=== PATIENT | female | born 1950 | race Hispanic/Latino ===

== ENCOUNTER 2018-04-02 09:21 | Day surgery (SDC) | payer OTHER ==
[2018-04-02] MEDS ORDERED: EPINEPHRINE/PF 1 MG/ML AMP ONE (10:12)
[2018-04-02] MEDS ORDERED: BALANCED SALT IRRIG PLAIN 500 ML BTL IRR ONE (10:12)
[2018-04-02] MEDS ORDERED: NS 0.9% VIAL 10 ML ONE (10:12)
[2018-04-02] MEDS ORDERED: DUOVISC 1 KIT OPTH ONE (10:12)
[2018-04-02] MEDS ORDERED: MOXIFLOXACIN HCL 10 DROPS/ML **OR USE OPTH ONE (10:13)
[2018-04-02] MEDS ORDERED: BUPIVACAINE 0.25% PF 10 ML VIAL ONE (10:41)
[2018-04-02] MEDS ORDERED: CYCLOPENTOLATE 1% OPTH 2 ML ONE (10:41)
[2018-04-02] MEDS ORDERED: LIDOCAINE 2% MPF 5 ML VIAL ONE ×2 (10:41→11:35)
[2018-04-02] MEDS ORDERED: NA CHLORIDE 0.9% 500 ML ONE (10:41)
[2018-04-02] MEDS ORDERED: PHENYLEPHRINE 10% OPTH 5ML ONE (10:41)
[2018-04-02] MEDS ORDERED: TETRACAINE HCL 0.5% 2ML OPTH ONE (10:41)
[2018-04-02] MEDS ORDERED: PHENYLEPHRINE 10% OPTH 5ML OPTH ONE ×2 (10:50→10:55)
[2018-04-02] MEDS ORDERED: CYCLOPENTOLATE 1% OPTH 2 ML OPTH ONE ×2 (10:50→10:55)
[2018-04-02] MEDS ORDERED: PROPOFOL 200 MG/20 ML VIAL IV ONE (11:35)
--- NOTE | 2018-04-02 12:38 | P.BOP ---
Preoperative diagnosis: Nuclear sclerotic and cortical cataract OD Postoperative diagnosis: Same Primary procedure: Phacoemulsification with IOL OD Estimated blood loss: None Anesthesia: Local (Subtenon's infusion with anesthesia for cataract surgery) Complications: None Implants: ZCB00 +14.5 Transferred to: Other (Day surgery) Condition: Good
--- NOTE | 2018-04-02 14:31 | OP ---
Date of Procedure: 04/02/2018 Surgeon: Alicia Newsome MD Anesthesiologist: Gail Rivera CRNA, and Edenilson Aleman M.D. Preoperative Diagnosis: Nuclear sclerotic cataract and cortical cataract, OD (right eye). Operation Performed: Phacoemulsification with intraocular lens implant, OD (right eye). Anesthesia: Per cataract surgery. Complications: Description Of Procedure: In day surgery, the patient was prepped with Betadine and draped. A conju nctival incision was made in the inferior nasal quadrant with Iraida scissors. A sub-Tenon block c onsisting of a 1:1 mixture of 2% Xylocaine and 0.25% bupivacaine was placed through the conjunctival incision with a blunt cannula. A Honan balloon was placed over the eye and the patient was transferr ed to the operating room. In the operating room the patient was prepped and draped in the usual sterile fashion for ophthalmic surgery. A lid speculum was placed in the right eye. Two paracentesis sites were made superiorly an d inferiorly in the limbal cornea. Viscoat was placed in the anterior chamber and a crescent blade w as used to make a corneal groove and tunnel, and a keratome was used to enter the anterior chamber. Provisc was placed in the anterior chamber and a 360 degree capsulotomy was performed with a cystitom e. The lens was hydrodissected with BSS and rotated freely. The lens was removed with a stop and ch op technique. A 5.75 phaco CDE was used to remove the lens. Residual cortex was removed with the ir rigation and aspiration. Provisc was placed in the capsular bag. A ZCB00 +14.5 diopter lens was lisa frank in the capsular bag without complications. Irrigation and aspiration were used to remove residua l viscoelastic. The paracentesis sites were hydrated with BSS. The wound and paracentesis sites wer e inspected and found to be watertight. Vigamox 0.07 cc was placed intracamerally at the end of the procedure. The eye was irrigated with balanced salt solution. The eye was patched with a soft kandis n patch and Bae metal shield. The patient was returned to day surgery in good condition. Comments: A 1:5000 epinephrine was placed in the anterior chamber prior to Viscoat. Discharge Instructions: Ms. Lancaster is discharged to home in good condition and is to follow up with Dr. Newsome in the morning. ZENA/KEYSHAWN Voice ID: [id number] Report ID: [id number]
== END 2018-04-02 13:00 | disposition home or self-care (01) ==
LOC: OR 09:21
PROVIDERS: ATTEND Ophthalmology Retina Specialist
PROC: 08RJ3JZ Replacement of Right Lens with Synthetic Substitute, Percutaneous Approach (ICD-10-PCS; principal; 2018-04-02 10:45)
DX: H25.11 Age-related nuclear cataract, right eye (principal); H25.011 Cortical age-related cataract, right eye; H35.30 Unspecified macular degeneration
CPT/HCPCS: 66984; J0171

== ENCOUNTER 2018-07-16 06:45 | Day surgery (SDC) | payer OTHER ==
[2018-07-16] MEDS ORDERED: LIDOCAINE 2% MPF 5 ML VIAL ONE ×2 (07:00→08:20)
[2018-07-16] MEDS ORDERED: TETRACAINE HCL 0.5% 2ML OPTH ONE (07:00)
[2018-07-16] MEDS ORDERED: BUPIVACAINE 0.25% PF 10 ML VIAL ONE (07:00)
[2018-07-16] MEDS ORDERED: NA CHLORIDE 0.9% 500 ML ONE (07:00)
[2018-07-16] MEDS: CYCLOPENTOLATE 1% OPTH 2 ML ONE ×3 (07:10→07:20)
[2018-07-16] MEDS: PHENYLEPHRINE 10% OPTH 5ML ONE ×3 (07:10→07:20)
[2018-07-16] MEDS ORDERED: EPINEPHRINE/PF 1 MG/ML AMP ONE (08:02)
[2018-07-16] MEDS ORDERED: NS 0.9% VIAL 10 ML ONE (08:02)
[2018-07-16] MEDS ORDERED: BALANCED SALT IRRIG PLAIN 500 ML BTL IRR ONE (08:03)
[2018-07-16] MEDS ORDERED: DUOVISC 1 KIT OPTH ONE (08:04)
[2018-07-16] MEDS ORDERED: PROPOFOL 200 MG/20 ML VIAL IV ONE (08:20)
[2018-07-16] MEDS ORDERED: MOXIFLOXACIN HCL 10 DROPS/ML **OR USE OPTH ONE (08:41)
--- NOTE | 2018-07-16 08:53 | P.BOP ---
Preoperative diagnosis: Nuclear sclerotic and cortical cataract OS Postoperative diagnosis: Same Primary procedure: Phacoemulsification with IOL OS Estimated blood loss: None Anesthesia: Local (Subtenon's infusion with anesthesia for cataract surgery) Complications: None Implants: ZCB00 +12.5 Transferred to: Other (Day surgery) Condition: Good
--- NOTE | 2018-07-16 19:37 | OP ---
Surgeon: Alicia Newsome MD Anesthesiologist: Gail Carmen CRNA. Preoperative Diagnosis: Nuclear sclerotic and cortical cataract, left eye Operation Performed: Phacoemulsification with intraocular lens implant, left eye. Anesthesia: Per cataract surgery Complications: None. Description Of Procedure: In day surgery, the patient was prepped with Betadine and draped. A conju nctival incision was made in the inferior nasal quadrant with Iraida scissors. A sub-Tenon block c onsisting of a 1:1 mixture of 2% Xylocaine and 0.25% bupivacaine was placed through the conjunctival incision with a blunt cannula. A Honan balloon was placed over the eye and the patient was transferr ed to the operating room. In the operating room the patient was prepped and draped in the usual sterile fashion for ophthalmic surgery. A lid speculum was placed in the left eye. Two paracentesis sites were made superiorly and inferiorly in the limbal cornea. Viscoat was placed in the anterior chamber and a crescent blade wa s used to make a corneal groove and tunnel, and a keratome was used to enter the anterior chamber. P rovisc was placed in the anterior chamber and a 360 degree capsulotomy was performed with a cystitome . The lens was hydrodissected with BSS and rotated freely. The lens was removed with a stop and cho p technique. 5.59 Phaco CDE was used to remove the lens. Residual cortex was removed with the irrig ation and aspiration. Provisc was placed in the capsular bag. A ZCB00 +12.5 lens was placed in the capsular bag without complications. Irrigation and aspiration was used to remove residual viscoelast ic. The paracentesis sites were hydrated with BSS. The wound and paracentesis sites were inspected and found to be watertight. Vigamox 0.07 cc was placed intracamerally at the end of the procedure. The eye was irrigated with balanced salt solution. The eye was patched with a soft cotton patch and Bae metal shield. The patient was returned to day surgery in good condition. Comments: 1:5000 epinephrine was placed in the anterior chamber prior to Viscoat. Discharge Instructions: Ms. Lancaster was discharged to home in good condition and is to follow up laquita Newsome in the morning. ZENA/KEYSHAWN Voice ID: [id number] Report ID: [id number]
== END 2018-07-16 09:16 | disposition home or self-care (01) ==
LOC: OR 06:45
PROVIDERS: ATTEND Ophthalmology Retina Specialist
PROC: 08RK3JZ Replacement of Left Lens with Synthetic Substitute, Percutaneous Approach (ICD-10-PCS; principal; 2018-07-16 08:30)
DX: H25.12 Age-related nuclear cataract, left eye (principal); H25.012 Cortical age-related cataract, left eye; H35.30 Unspecified macular degeneration
CPT/HCPCS: 66984; J0171

== ENCOUNTER 2019-02-12 06:05 | Emergency (ER) | payer OTHER ==
[2019-02-12] MEDS ORDERED: LIDOCAINE VISCOUS 2% SOLN 15 ML UDC ONE (06:35)
[2019-02-12] MEDS ORDERED: ONDANSETRON 4 MG (ODT) TAB ONE (07:20)
[2019-02-12] MEDS ORDERED: MEPERIDINE HCL 25 MG/0.5 ML ONE (07:20)
--- NOTE | 2019-02-12 08:20 | EDPHYS ---
Physician Documentation [facility] Name: Manju Lancaster Age: 69 yrs Sex: Female : 1950 Arrival Date: 02/12/2019 Time: 06:17 Bed 19 Private MD: Isaac Fisher E ED Physician Solomon Amin HPI: 02/12 07:18 This 69 yrs old Female presents to ER via Ambulatory with complaints of jr8 Foreign Body In Ear. 07:18 The patient presents with a foreign body sensation, presumably from an insect. The jr8 complaints affect the right ear. Onset: The symptoms/episode began/occurred acutely, last night. Modifying factors: The symptoms are alleviated by nothing, the symptoms are aggravated by touching. Associated signs and symptoms: The patient has no apparent associated signs or symptoms. Severity of symptoms: At their worst the symptoms were mild in the emergency department the symptoms are unchanged. The patient has not experienced similar symptoms in the past. The patient has not recently seen a physician. Historical: - Allergies: 06:26 NKA; fc - Home Meds: 06:26 None [Active]; fc - PMHx: 06:26 GERD; Vertigo; fc - PSHx: 06:26 Hysterectomy; fc - Immunization history:: Last tetanus immunization: unknown, Flu vaccine is not up to date. - Social history:: Smoking status: Patient/guardian denies using tobacco, Patient uses alcohol, occasionally. - Ebola Screening: : Patient negative for fever greater than or equal to 101.5 degrees Fahrenheit, and additional compatible Ebola Virus Disease symptoms Patient denies exposure to infectious person Patient denies travel to an Ebola-affected area in the 21 days before illness onset. ROS: 07:18 Eyes: Negative for injury, pain, redness, and discharge, Neck: Negative for injury, jr8 pain, and swelling, Cardiovascular: Negative for chest pain, palpitations, and edema, Respiratory: Negative for shortness of breath, cough, wheezing, and pleuritic chest pain, Abdomen/GI: Negative for abdominal pain, nausea, vomiting, diarrhea, and constipation, Back: Negative for injury and pain, MS/Extremity: Negative for injury and deformity, Skin: Negative for injury, rash, and discoloration, Neuro: Negative for headache, weakness, numbness, tingling, and seizure. 07:18 ENT: Positive for ear pain, foreign body sensation. Exam: 07:18 Eyes: Pupils equal round and reactive to light, extra-ocular motions intact. Lids and jr8 lashes normal. Conjunctiva and sclera are non-icteric and not injected. Cornea within normal limits. Periorbital areas with no swelling, redness, or edema. Neck: Trachea midline, no thyromegaly or masses palpated, and no cervical lymphadenopathy. Supple, full range of motion without nuchal rigidity, or vertebral point tenderness. No Meningismus. Cardiovascular: Regular rate and rhythm with a normal S1 and S2. No gallops, murmurs, or rubs. Normal PMI, no JVD. No pulse deficits. Respiratory: Lungs have equal breath sounds bilaterally, clear to auscultation and percussion. No rales, rhonchi or wheezes noted. No increased work of breathing, no retractions or nasal flaring. Abdomen/GI: Soft, non-tender, with normal bowel sounds. No distension or tympany. No guarding or rebound. No evidence of tenderness throughout. Back: No spinal tenderness. No costovertebral tenderness. Full range of motion. Skin: Warm, dry with normal turgor. Normal color with no rashes, no lesions, and no evidence of cellulitis. MS/ Extremity: Pulses equal, no cyanosis. Neurovascular intact. Full, normal range of motion. Neuro: Awake and alert, GCS 15, oriented to person, place, time, and situation. Cranial nerves II-XII grossly intact. Motor strength 5/5 in all extremities. Sensory grossly intact. Cerebellar exam normal. Normal gait. 07:18 ENT: External ear(s): are unremarkable, Ear canal(s): foreign body, an insect, in the right external ear canal, Examination of the other ear shows no obvious abnormality, Nose: is normal, Mouth: Lips: moist, Oral mucosa: pink and intact, moist, Gums: pink, Tongue: is moist, Posterior pharynx: Airway: patent, Tonsils: are normal in appearance, Uvula: midline, non-edematous, no erythema, swelling, is not appreciated, erythema, is not appreciated. Vital Signs: 06:20 BP 173 / 84; Pulse 69; Resp 18; Temp 98.2(O); Pulse Ox 98% on R/A; Weight 81.65 kg (R); fc Height 5 ft. 2 in. (157.48 cm) (R); Pain 0/10; 07:15 BP 167 / 89; Pulse 62; Resp 16 S; Pulse Ox 97% on R/A; Pain 7/10; jl7 08:26 BP 141 / 71; Pulse 59; Resp 16 S; Pulse Ox 100% on R/A; Pain 5/10; jl7 06:20 Body Mass Index 32.92 (81.65 kg, 157.48 cm) MDM: 06:20 Patient medically screened. jr8 08:18 Data reviewed: vital signs, nurses notes, and as a result, I will discharge patient. jr8 Data interpreted: Pulse oximetry: on room air is 97 %. Interpretation: normal. Counseling: I had a detailed discussion with the patient and/or guardian regarding: the historical points, exam findings, and any diagnostic results supporting the discharge/admit diagnosis, the need for outpatient follow up, an ENT specialist, to return to the emergency department if symptoms worsen or persist or if there are any questions or concerns that arise at home. ED course: We were only able to partially remove bug from ear. Other portion is stuck on to TM. Will send to ENT for further evaluation. Dr. Simons accepted to see her at her office now. Administered Medications: 07:10 Drug: Zofran 4 mg Route: PO; jl7 07:11 Drug: Demerol 25 mg Route: IM; Site: right deltoid; jl7 Disposition: 02/12/19 08:19 Discharged to Home. Impression: Foreign body in ear. - Condition is Stable. - Discharge Instructions: Ear Foreign Body. - Medication Reconciliation Form, Thank You Letter, Antibiotic Education, Prescription Opioid Use form. - Follow up: Nisa Simons MD; When: Upon discharge from the Emergency Department; Reason: Recheck today's complaints, Continuance of care, Re-evaluation by your physician. - Problem is new. - Symptoms have improved. Signatures: Dary Flores, RN RN Galo Dasilva PA PA jr8 Iliana Felix RN RN jl7 Corrections: (The following items were deleted from the chart) 08:26 08:19 02/12/2019 08:19 Discharged to Home. Impression: Foreign body in ear. Condition jl7 is Stable. Forms are Medication Reconciliation Form, Thank You Letter, Antibiotic Education, Prescription Opioid Use. Follow up: Nisa Simons; When: Upon discharge from the Emergency Department; Reason: Recheck today's complaints, Continuance of care, Re-evaluation by your physician. Problem is new. Symptoms have improved. jr8
--- NOTE | 2019-02-12 08:20 | ER ---
Nurse's Notes [facility] Name: Manju Lancaster Age: 69 yrs Sex: Female : 1950 Arrival Date: 02/12/2019 Time: 06:17 Bed 19 Private MD: Isaac Fisher E Diagnosis: Foreign body in ear Presentation: 02/12 06:20 Presenting complaint: Patient states: that she has a bug in her right ear from last night at 2330. She attempted to flush it out but it would not come out. Transition of care: patient was not received from another setting of care. Onset of symptoms was February 11, 2019 at 23:30. Risk Assessment: Do you want to hurt yourself or someone else? Patient reports no desire to harm self or others. Initial Sepsis Screen: Does the patient meet any 2 criteria? No. Patient's initial sepsis screen is negative. Does the patient have a suspected source of infection? No. Patient's initial sepsis screen is negative. Care prior to arrival: flushing of right ear with water. 06:20 Method Of Arrival: Ambulatory 06:20 Acuity: CHRISTOPHE 4 fc Historical: - Allergies: 06:26 NKA; fc - Home Meds: 06:26 None [Active]; fc - PMHx: 06:26 GERD; Vertigo; fc - PSHx: 06:26 Hysterectomy; fc - Immunization history:: Last tetanus immunization: unknown, Flu vaccine is not up to date. - Social history:: Smoking status: Patient/guardian denies using tobacco, Patient uses alcohol, occasionally. - Ebola Screening: : Patient negative for fever greater than or equal to 101.5 degrees Fahrenheit, and additional compatible Ebola Virus Disease symptoms Patient denies exposure to infectious person Patient denies travel to an Ebola-affected area in the 21 days before illness onset. Screenin:26 Abuse screen: Denies threats or abuse. Nutritional screening: No deficits noted. Tuberculosis screening: No symptoms or risk factors identified. Fall Risk None identified. Assessment: 06:54 General: Appears distressed, Behavior is calm, cooperative. Pain: Denies pain. Neuro: ed1 Level of Consciousness is awake, alert, obeys commands, Oriented to person, place, time, situation. Cardiovascular: Denies chest pain, Heart tones S1 S2 present. Respiratory: Airway is patent Respiratory effort is even, unlabored, Respiratory pattern is regular, symmetrical, Breath sounds are clear bilaterally. GI: No signs and/or symptoms were reported involving the gastrointestinal system. : No signs and/or symptoms were reported regarding the genitourinary system. EENT: Ear canal w/ foreign body noted from right ear. Derm: Skin is intact, is healthy with good turgor, Skin is dry, Skin is normal, Skin temperature is warm. Musculoskeletal: Circulation, motion, and sensation intact. Range of motion: intact in all extremities. 06:56 Reassessment: Galo at bedside. ed1 07:10 Reassessment: Patient appears in no apparent distress at this time. Patient is alert, jl7 oriented x 3, equal unlabored respirations, skin warm/dry/pink. Pain: Complains of pain in right ear Pain currently is 7 out of 10 on a pain scale. Cardiovascular: Patient's skin is warm and dry. Vital Signs: 06:20 BP 173 / 84; Pulse 69; Resp 18; Temp 98.2(O); Pulse Ox 98% on R/A; Weight 81.65 kg (R); Height 5 ft. 2 in. (157.48 cm) (R); Pain 0/10; 07:15 BP 167 / 89; Pulse 62; Resp 16 S; Pulse Ox 97% on R/A; Pain 7/10; jl7 08:26 BP 141 / 71; Pulse 59; Resp 16 S; Pulse Ox 100% on R/A; Pain 5/10; jl7 06:20 Body Mass Index 32.92 (81.65 kg, 157.48 cm) ED Course: 06:17 Patient arrived in ED. es 06:17 Isaac Fisher MD is Private Physician. es 06:20 Galo Dasilva PA is PHCP. jr8 06:20 Solomon Amin MD is Attending Physician. jr8 06:20 Arm band placed on Patient placed in an exam room, on a stretcher. 06:25 Triage completed. 06:26 Patient has correct armband on for positive identification. Bed in low position. Call light in reach. 06:46 Mitzi Barrera, RN is Primary Nurse. ed1 06:54 Ear irrigation: Route right ear with Normal Saline amount 250ml Patient tolerated ed1 poorly. 07:03 Primary Nurse role handed off by Mitzi Barrera, RN ed1 07:06 Iliana Felix, ALTAGRACIA is Primary Nurse. jl7 08:19 Nisa Simons MD is Referral Physician. jr8 08:25 Assist provider with foreign body removal of an insect from right ear canal. using jl7 procedure unsuccessful Set up for procedure. Performed by Galo KING Patient tolerated well. Patient did not have IV access during this emergency room visit. Administered Medications: 07:10 Drug: Zofran 4 mg Route: PO; jl7 07:11 Drug: Demerol 25 mg Route: IM; Site: right deltoid; jl7 Outcome: 08:19 Discharge ordered by . jr8 08:25 Discharged to home ambulatory. jl7 08:25 Condition: stable 08:25 Discharge instructions given to patient, family, Instructed on discharge instructions, follow up and referral plans. Demonstrated understanding of instructions, follow-up care. 08:26 Patient left the ED. jl7 Signatures: Sandy Castillo Felicia RN RN Mitzi Barrera, RN RN ed1 Galo Dasilva PA PA jr8 Iliana Felix, ALTAGRACIA RN jl7
== END 2019-02-12 08:26 | disposition home or self-care (01) ==
LOC: ER 06:05
DX: T16.1XXA Foreign body in right ear, initial encounter (principal)
CPT/HCPCS: 96372; 99283; J2175

== ENCOUNTER 2020-01-13 15:14 | Emergency (ER) | payer OTHER ==
--- OUTSIDE RECORDS SUMMARY | 2020-01-13 15:16 | XMS REPORT | Summary of Care ---
:1950 Author Name JAIME KING N.P. Address Unavailable Unavailable , Care Team Providers Name Role Phone TREY QUIROS MD Unavailable Unavailable Hoang BRADLEY, Jaime Unavailable Unavailable Unavailable Unavailable Unavailable Functional Status Name Dates Details Functional status health issues are not documented Status: Name Dates Details Cognitive status health issues are not documented Status: Problems Name Dates Details Urinary incontinence in female (788.30, R32) Status: Active Acute left lower quadrant pain (789.04, R10.32) Status: Active Mixed urge and stress incontinence (788.33, N39.46) Status: Active Urinary incontinence without sensory awareness (788.34, N39.42) Status: Active Urinary urgency (788.63, R39.15) Status: Active Nocturia (788.43, R35.1) Status: Active 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, 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 Microscopic hematuria (599.72, R31.29) Status: Active Chronic LLQ pain (789.04, R10.32) Status: Active Medications Name Dates Details Meclizine HCl - 25 MG Oral Tablet Refills: 0 M.A.Active Meloxicam 15 MG Oral Tablet Refills: 0 M.A.Active traMADol HCl - 50 MG Oral Tablet Refills: 0 M.A.Active Omeprazole 40 MG Oral Capsule Delayed Release Refills: 0 M.A.Active carBAMazepine ER 200 MG Oral Tablet Extended Release 12 Hour Refills: 0 M.A.Active Allergies and Adverse Reactions Name Dates Details No Known Drug Allergies (Allergy) Status: Active Past Medical History Name Dates Details History of gastroesophageal reflux (GERD) (V12.79, Z87.19) Status: Resolved History of ulceration (V13.89, Z87.898) Status: Resolved No pertinent past medical history (V49.89, Z78.9) Status: Resolved Procedures Procedure Dates Details [QL] CULTURE, URINE, ROUTINE Date: 08-Jan-2020 Renal [id number] Date: 08-Jan-2020 US Pelvic with Transvaginal and Pelvic Doppler [id number] Date: 08-Jan-2020 History of Salpingo-oophorectomy Right Side Completed History of Laparoscopy With Total Hysterectomy For Completed Uterus 250g Or Less Immunization Name Dates Details Immunizations not documented Family History Name Dates Details Family history of malignant neoplasm (V16.9, Z80.9) Comments: Family History Status: Active Social History Name Dates Details Unknown if ever smoked Vital Signs Date Test Result Details [id number] BP Systolic 158 mm[Hg] Status: Comments: Location: LUE; Position: Sitting BP Diastolic 74 mm[Hg] Status: Comments: Location: LUE; Position: Sitting Height 62 in Status: Weight 180 lb Status: Body Mass Index Calculated 32.92 kg/m2 Status: Body Surface Area Calculated 1.83 m2 Status: Results Date Description Value Details [id number] [O] Urine Dipstick (In Office) Glucose neg (Normal) LEUKOCYTES neg (Normal) NITRITE neg (Normal) UROBILINOGEN 0.2 (Normal) PROTEIN trace (Abnormal) pH 6.0 (Normal) URINE BLOOD 2+ (Abnormal) SPECIFIC GRAVITY 1.030 (Normal) KETONES neg (Normal) BILIRUBIN neg (Normal) Plan of Care Name Dates Details Planned Observations Planned Goals not documented Planned Encounters Appointment; JAIME KING NP On: 23-Jan-2020 11:00 Appointment; TREY QUIROS M.D. On: 26-Feb-2020 10:10 Appointment; TREY QUIROS M.D. On: 26-Feb-2020 11:00 Interventions Provided Labs/Procedures/Imaging[[facility]] CULTURE, URINE, ROUTINE; To Be Done: 08 Jan 2020US Pelvic with Transvaginal and Pelvic Doppler 94771; To Be Done: 08 Jan 2020US Renal 16163; To Be Done: 08 Jan 2020 Instructions Name Dates Details Instructions not documented Encounters Appointment; TREY QUIROS M.D. On: 08-Jan-2020 9:20 Encounter Diagnosis: Problem not documented
--- OUTSIDE RECORDS SUMMARY | 2020-01-13 15:16 | XMS REPORT | Summary of Care ---
:1950 Author Name Brianda Vera M.A. Address Unavailable Unavailable , Care Team Providers Name Role Phone TREY QUIROS M.D. Unavailable Unavailable TREY QUIROS MD Unavailable Unavailable Unavailable Unavailable Unavailable Functional Status Name Dates Details Functional status health issues are not documented Status: Name Dates Details Cognitive status health issues are not documented Status: Problems Name Dates Details Active medical history not documented Status: Medications Name Dates Details Meclizine HCl - 25 MG Oral Tablet Refills: 0 Active Meloxicam 15 MG Oral Tablet Refills: 0 Active traMADol HCl - 50 MG Oral Tablet Refills: 0 Active Omeprazole 40 MG Oral Capsule Delayed Release Refills: 0 Active carBAMazepine ER 200 MG Oral Tablet Extended Release 12 Hour Refills: 0 Active Allergies and Adverse Reactions Name Dates Details No Known Drug Allergies (Allergy) Status: Active Past Medical History Name Dates Details History of gastroesophageal reflux (GERD) (V12.79, Z87.19) Status: Resolved History of ulceration (V13.89, Z87.898) Status: Resolved No pertinent past medical history (V49.89, Z78.9) Status: Resolved Procedures Procedure Dates Details History of No history of surgery Completed Immunization Name Dates Details Immunizations not documented Social History Name Dates Details Unknown if ever smoked Vital Signs Date Test Result Details No Known Vitals to report Results Date Description Value Details Results not documented Plan of Care Name Dates Details Planned Observations Planned Goals not documented Interventions Provided Plan1) Reviewed exam, PVR and UA 2) Urine for culture; treat if + 3) Instructions Name Dates Details Instructions not documented Encounters Appointment; TREY QUIROS M.D. On: 08-Jan-2020 9:20 Encounter Diagnosis: Problem not documented
--- OUTSIDE RECORDS SUMMARY | 2020-01-13 15:16 | XMS REPORT | Summary of Care ---
:1950 Author Name July Arango M.A. Address Unavailable Unavailable , Care Team [...] smoked Vital Signs Date Test Result Details :35 BP Systolic 158 mm[Hg] Status: Comments: Location: LUE; Position: Sitting BP Diastolic 74 mm[Hg] Status: Comments: Location: LUE; Position: Sitting Height 62 in Status: Weight 180 lb Status: Body Mass Index Calculated 32.92 kg/m2 Status: Body Surface Area Calculated 1.83 m2 Status: Results Date Description Value Details Results not documented Plan of Care Name Dates Details Planned Observations Planned Goals not documented Interventions Provided Labs/Procedures/ImagingTobacco Use Screening; Done: 08 Jan 2020Plan1) Reviewed exam, PVR and UA 2) Urine for culture; treat if + 3) Instructions Name Dates Details Instructions not documented Encounters Appointment; TREY QUIROS M.D. On: 08-Jan-2020 9:20 Encounter Diagnosis: Problem not documented
--- OUTSIDE RECORDS SUMMARY | 2020-01-13 15:16 | XMS REPORT | Summary of Care ---
:1950 Author Name TREY QUIROS M.D. Address Unavailable Unavailable , Care Team Providers Name Role Phone CHULA Stout, TREY Unavailable Unavailable CHULA TERRAZAS, TREY H Unavailable Unavailable Jaime King NP Unavailable Unavailable Unavailable Unavailable Unavailable Functional Status [...] [QL] CULTURE, URINE, ROUTINE Date: 08-Jan-2020 Renal 81839 Date: 08-Jan-2020 Pelvic with Transvaginal and Pelvic Doppler 77381 Date: 08-Jan-2020 History of Salpingo-oophorectomy Right Side Completed History of Laparoscopy With Total Hysterectomy For Completed Uterus 250g Or Less Immunization Name Dates Details Immunizations not documented Family History Name Dates Details Family history of malignant neoplasm (V16.9, Z80.9) Comments: Family History Status: Active Social History Name Dates Details Unknown if ever smoked Vital Signs Date Test Result Details [id number] BP Systolic 158 mm[Hg] Status: Comments: Location: [...] QUIROS M.D. On: 26-Feb-2020 11:00 Interventions Provided Labs/Procedures/Imaging[[facility]] CULTURE, URINE, ROUTINE; To Be Done: 08 Jan 2020US Pelvic with Transvaginal and Pelvic Doppler 53075; To Be Done: 08 Jan 2020US Renal 06660; To Be Done: 08 Jan 2020Tobacco Use Screening; Done: 08 Jan 2020Plan1) Reviewed exam, PVR and UA 2) Urine for culture; treat if + 3) Renal US and pelvic US ordered to evaluation hematuria and pelvic pain; may need CT if abnormalities noted 4) Return for urodynamics with MACHINE CLERICAL VERIFIER for evaluation of OAB, mixed leakage, and spontaneous leakage 5) Cystoscopy/PEC for final evaluation of hematuria, and plan. Will need therapy first for OAB andUI, then likely surgical management of DEREK 6) Encouraged to intake adequate water daily; at least the equivalent of her caffeine/soda intake. Instructions Name Dates Details Instructions not documented Encounters Appointment; TREY QUIROS M.D. On: 08-Jan-2020 9:20 Encounter Diagnosis: Problem not documented
--- OUTSIDE RECORDS SUMMARY | 2020-01-13 15:17 | XMS REPORT | Summary of Care ---
:1950 Author Name JO BOLTON APRN Address Unavailable Unavailable , Care Team Providers Name Role Phone TREY QUIROS MD Unavailable Unavailable Jo Bolton NP Unavailable Unavailable Unavailable Unavailable Unavailable Functional [...] Z78.9) Status: Resolved Procedures Procedure Dates Details [place] Renal 60331 Date: 08-Jan-2020 US Pelvic with Transvaginal and Pelvic Doppler 02597 Date: 08-Jan-2020 History of Salpingo-oophorectomy Right Side Completed History of Laparoscopy With Total Hysterectomy For Completed Uterus 250g Or Less Immunization Name Dates Details Immunizations not documented Family History Name Dates Details Family history of malignant neoplasm (V16.9, Z80.9) Comments: Family History Status: Active Social History Name Dates Details Unknown if ever smoked Vital Signs Date Test Result Details [id number]-[id number] BP Systolic 158 mm[Hg] Status: Comments: Location: LUE; Position: Sitting BP Diastolic 74 mm[Hg] Status: Comments: Location: LUE; Position: Sitting Height 62 in Status: Weight 180 lb Status: Body Mass Index Calculated 32.92 kg/m2 Status: Body Surface Area Calculated 1.83 m2 Status: Results Date Description Value Details [id number] [O] Urine Dipstick (In Office) Glucose neg (Normal) LEUKOCYTES neg (Normal) NITRITE neg (Normal) UROBILINOGEN 0.2 (Normal) PROTEIN trace (Abnormal) pH 6.0 (Normal) URINE BLOOD 2+ (Abnormal) SPECIFIC GRAVITY 1.030 (Normal) KETONES neg (Normal) BILIRUBIN neg (Normal) [id number] [QLH] CULTURE, URINE, ROUTINE Comments: Source: Urine, Clean CatchBody Site: FINAL REPORT No Growth Plan of Care Name Dates Details Planned Observations Planned Goals not documented Planned Encounters Appointment; JO BOLTON APRN On: 23-Jan-2020 11:00 Appointment; TREY QUIROS M.D. On: 26-Feb-2020 10:10 Appointment; TREY QUIROS M.D. On: 26-Feb-2020 11:00 Instructions Name Dates Details Instructions not documented Encounters Appointment; TREY QUIROS M.D. On: 08-Jan-2020 9:20 Encounter Diagnosis: Problem not documented
[2020-01-13] MEDS ORDERED: HYDROCODONE/APAP 10/325 TAB ONE (15:55)
--- NOTE | 2020-01-13 16:27 | EDPHYS ---
Physician Documentation [facility] Name: Manju Lancaster Age: 69 yrs Sex: Female : 1950 Arrival Date: 01/13/2020 Time: 15:16 Bed 30 Private MD: Isaac Fisher E ED Physician Julius San HPI: 01/13 16:18 This 69 yrs old Female presents to ER via Wheelchair with complaints of Right pm1 Knee Pain. 16:18 The patient presents with pain. The complaints affect the right knee. Context: The pm1 problem was sustained at home, resulted from possibly twisting her right knee, the patient can fully bear weight, the patient is able to ambulate, with mild difficulty, using will wrap, Problem is a result from a previous injury: No. Onset: The symptoms/episode began/occurred 5 day(s) ago. Modifying factors: The symptoms are alleviated by elevating leg, the symptoms are aggravated by weight bearing, bending knee. Associated signs and symptoms: Pertinent negatives calf tenderness, fever, numbness, swelling, tingling, warmth. Treatment prior to arrival includes: will wrap. Severity of symptoms: in the emergency department the symptoms are unchanged. The patient has not experienced similar symptoms in the past. The patient has not recently seen a physician. 16:18 Twisted right knee with getting up from the floor. Has been doing carpentry at the pm1 house. Historical: - Allergies: 15:21 NKA; hb - Home Meds: 15:21 None [Active]; hb - PMHx: 15:21 Vertigo; GERD; hb - PSHx: 15:21 Hysterectomy; hb - Immunization history:: Adult Immunizations up to date. - Coronavirus screen:: The patient has NOT traveled to [place] in the past 14 days. The patient has NOT had contact with known/suspected case of Coronavirus? Proceed with normal triage procedures. - Social history:: Smoking status: Patient denies any tobacco usage or history of. - Ebola Screening: : No symptoms or risks identified at this time. ROS: 16:18 Constitutional: Negative for fever, chills, and weight loss, Cardiovascular: Negative pm1 for chest pain, palpitations, and edema, Respiratory: Negative for shortness of breath, cough, wheezing, and pleuritic chest pain, Abdomen/GI: Negative for abdominal pain, nausea, vomiting, diarrhea, and constipation, Back: Negative for injury and pain. 16:18 Skin: Negative for injury, rash, and discoloration, Neuro: Negative for headache, weakness, numbness, tingling, and seizure. 16:18 MS/extremity: Positive for pain, of the right knee, Pain with right knee bending it greater than 90 degrees, Negative for deformity. 16:18 All other systems are negative. Exam: 16:18 Constitutional: This is a well developed, well nourished patient who is awake, alert, pm1 and in no acute distress. Head/Face: Normocephalic, atraumatic. Chest/axilla: Normal chest wall appearance and motion. Nontender with no deformity. No lesions are appreciated. Cardiovascular: Regular rate and rhythm with a normal S1 and S2. No gallops, murmurs, or rubs. Normal PMI, no JVD. No pulse deficits. Respiratory: Lungs have equal breath sounds bilaterally, clear to auscultation and percussion. No rales, rhonchi or wheezes noted. No increased work of breathing, no retractions or nasal flaring. Back: No spinal tenderness. No costovertebral tenderness. Full range of motion. Skin: Warm, dry with normal turgor. Normal color with no rashes, no lesions, and no evidence of cellulitis. 16:18 Musculoskeletal/extremity: Extremities: grossly normal except: noted in the right knee: Pain with valgus stressing. Negative drawer test . Vital Signs: 15:21 BP 147 / 69; Pulse 71; Resp 16; Temp 98; Pulse Ox 99% on R/A; Weight 81.65 kg; Height 5 hb ft. 2 in. (157.48 cm); Pain 8/10; 15:21 Body Mass Index 32.92 (81.65 kg, 157.48 cm) hb MDM: 15:31 Patient medically screened. [facility] 16:25 Data reviewed: vital signs. Data interpreted: Pulse oximetry: on room air is 99 %. pm1 Interpretation: normal. Counseling: I had a detailed discussion with the patient and/or guardian regarding: the historical points, exam findings, and any diagnostic results supporting the discharge/admit diagnosis, radiology results, the need for outpatient follow up, for definitive care, a orthopedic surgeon, to return to the emergency department if symptoms worsen or persist or if there are any questions or concerns that arise at home. 01/13 15:34 Order name: Knee Right 3 View XRAY pm1 01/13 15:49 Order name: Knee Immobilizer; Complete Time: 16:04 pm1 01/13 15:49 Order name: Crutches; Complete Time: 16:04 pm1 Administered Medications: 16:04 Drug: Polson 10 mg-325 mg 1 tabs Route: PO; ls4 Disposition: 01/13/20 16:26 Discharged to Home. Impression: Pain in right knee. - Condition is Stable. - Discharge Instructions: Crutch Use, Knee Immobilizer, Knee Pain. - Prescriptions for Tramadol 50 mg Oral Tablet - take 1 tablet by ORAL route every 8 hours as needed; 12 tablet. - Medication Reconciliation Form, Thank You Letter, Antibiotic Education, Prescription Opioid Use form. - Follow up: Private Physician; When: As needed; Reason: Worsening of condition. Follow up: Emergency Department; When: As needed; Reason: Worsening of condition. Follow up: Jero Alves MD; When: 2 - 3 days; Reason: Recheck today's complaints, Continuance of care, Re-evaluation by your physician. - Problem is new. - Symptoms have improved. Addendum: 01/15/2020 08:47 Co-signature as Attending Physician, Julius San MD I agree with the assessment and c coronado plan of care. Signatures: Dispatcher [employer] EDJulius Vergara MD MD cha Marinas, Patrick, POWER PLANT ELECTRICIAN POWER PLANT ELECTRICIAN pm1 Cely Stuart, ALTAGRACIA RN Carole Hart RN RN ls4 Corrections: (The following items were deleted from the chart) 01/13 16:44 16:26 01/13/2020 16:26 Discharged to Home. Impression: Pain in right knee. Condition is ls4 Stable. Forms are Medication Reconciliation Form, Thank You Letter, Antibiotic Education, Prescription Opioid Use. Follow up: Private Physician; When: As needed; Reason: Worsening of condition. Follow up: Emergency Department; When: As needed; Reason: Worsening of condition. Follow up: Dr. Jero Alves; When: 2 - 3 days; Reason: Recheck today's complaints, Continuance of care, Re-evaluation by your physician. Problem is new. Symptoms have improved. pm1
--- NOTE | 2020-01-13 16:27 | ER ---
Nurse's Notes [facility] Name: Manju Lancaster Age: 69 yrs Sex: Female : 1950 Arrival Date: 01/13/2020 Time: 15:16 Bed 30 Private MD: Isaac Fisher E Diagnosis: Pain in right knee Presentation: 01/13 15:20 Presenting complaint: Right knee pain x 5 days. Denies injury. Transition of care: hb patient was not received from another setting of care. Onset of symptoms was January 09, 2020. Risk Assessment: Do you want to hurt yourself or someone else? Patient reports no desire to harm self or others. Initial Sepsis Screen: Does the patient meet any 2 criteria? No. Patient's initial sepsis screen is negative. Does the patient have a suspected source of infection? No. Patient's initial sepsis screen is negative. Care prior to arrival: None. 15:20 Method Of Arrival: Wheelchair hb 15:20 Acuity: CHRISTOPHE 4 hb Triage Assessment: 15:26 General: Appears in no apparent distress. Behavior is calm, cooperative. ls4 Historical: - Allergies: 15:21 NKA; hb - Home Meds: 15:21 None [Active]; hb - PMHx: 15:21 Vertigo; GERD; hb - PSHx: 15:21 Hysterectomy; hb - Immunization history:: Adult Immunizations up to date. - Coronavirus screen:: The patient has NOT traveled to [place] in the past 14 days. The patient has NOT had contact with known/suspected case of Coronavirus? Proceed with normal triage procedures. - Social history:: Smoking status: Patient denies any tobacco usage or history of. - Ebola Screening: : No symptoms or risks identified at this time. Screenin:26 Abuse screen: Denies threats or abuse. Denies injuries from another. Nutritional ls4 screening: No deficits noted. Tuberculosis screening: No symptoms or risk factors identified. Fall Risk None identified. Vital Signs: 15:21 BP 147 / 69; Pulse 71; Resp 16; Temp 98; Pulse Ox 99% on R/A; Weight 81.65 kg; Height 5 hb ft. 2 in. (157.48 cm); Pain 8/10; 15:21 Body Mass Index 32.92 (81.65 kg, 157.48 cm) hb ED Course: 15:16 Patient arrived in ED. ag5 15:16 Isaac Fisher MD is Private Physician. ag5 15:21 Triage completed. hb 15:21 Arm band placed on. hb 15:22 Hussein Rand NP is PHCP. pm1 15:22 Julius San MD is Attending Physician. pm1 15:25 Carole Hart, RN is Primary Nurse. ls4 15:26 Patient has correct armband on for positive identification. Bed in low position. Call ls4 light in reach. Side rails up X 1. 16:26 Jero Alves MD is Referral Physician. pm1 16:42 Knee Right 3 View XRAY In Process Unspecified. EDMS Administered Medications: 16:04 Drug: [place] 10 mg-325 mg 1 tabs Route: PO; ls4 Outcome: 16:26 Discharge ordered by . pm1 16:44 Patient left the ED. ls4 Signatures: Dispatcher [employer] EDMS Hussein Rand NP HORTICULTURE TEACHER pm1 Cely Stuart RN RN Carole Hart RN RN ls4 Santhosh Kline ag5
--- NOTE | 2020-01-13 16:28 | RAD REPORT ---
EXAM DESCRIPTION: RAD - Knee Right 3 View - 01/13/2020 4:14 pm CLINICAL HISTORY: PAIN COMPARISON: No comparisons FINDINGS: No fracture or joint effusion is seen. Mild medial compartment space narrowing.
[2020-01-13 17:55] VITALS: BP 147/69; TEMP 98; O2SAT 99
== END 2020-01-13 16:44 | disposition home or self-care (01) ==
LOC: ER 15:14
DX: M25.561 Pain in right knee (principal)
CPT/HCPCS: 99283

== ENCOUNTER 2023-04-30 06:13 | Emergency (ER) | payer OTHER ==
--- OUTSIDE RECORDS SUMMARY | 2023-04-30 06:17 | XMS REPORT | Continuity of Care Document ---
:1950 Author Organization [facility] t Address [address] [place] [address] [place] [id number] Care Team Providers Name Role Phone Megan Nation Attending Clinician Unavailable Charles Lezama Attending Clinician TREY QUIROS M.D. Attending Clinician Unavailable Trey Quiros Attending Clinician JAIME KING APRN Attending Clinician Unavailable Joe Ornelas Attending Clinician JOE MELARA Attending Clinician Unavailable Payers Payer Name Policy Type Policy Number Effective Date Expiration Date S chad Problems Condition Condition Condition Status Onset Resolution Last Treating Co mments Source Name Details Category Date Date Treatment Clinician Date R10.32 - R10.32 - Diagnosis Active 2020-05-02 Memoria LEFT LOWER LEFT LOWER 04-22 11:30:00 l QUADRANT QUADRANT 00:01: Markel n PAIN R10.9 PAIN R10.9 00 Active 04/22/2020 MH OPID [place] History of History of Problem Resolve [place] gastroesop gastroesop d Ph ysici hageal hageal ans reflux reflux (GERD) (GERD) History of History of Problem Resolve UT ulceration ulceration d Ph ysici ans Urinary Urinary Problem Active UT incontinen incontinen Ph ysici ce in ce in ans female female Chronic Chronic Problem Active UT LLQ pain LLQ pain Physic i ans 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 Physici ans Microscopi Microscopi Problem Active U T c c Physici hematuria hematuria ans Mixed urge Mixed urge Problem Active U T and stress and stress Ph ysici incontinen incontinen an s ce ce Nocturia Nocturia Problem Active [facility] Physici ans Urinary Urinary Problem Active UT urgency urgency Physici ans Urinary Urinary Problem Active UT incontinen incontinen Ph ysici ce without ce without an s sensory sensory awareness awareness Left flank Left flank Problem Active U T pain, pain, Physici chronic chronic ans Umbilical Umbilical Problem Active UT discharge discharge Phys ici ans 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 04:06:00 l (disorder) (disorder) He rmann Resolved Problem 07/31/2022 [facility] Dizziness Dizziness Problem Active 2022-10-30 Memoria (finding) (finding) 02:06:21 l Active [place] Problem 10/30/2022 [facility],MNA Neurology [place] Headache Headache Problem Active 2022-10-30 Memoria (finding) (finding) 02:06:21 l Active [place] Problem 10/30/2022 [facility] [place] Nasal Nasal Problem Active 2022-10-30 Memor ia congestion congestion 02:06:21 l (finding) (finding) Herm nerissa Active Problem 10/30/2022 [facility] Neurology [place] Nasal Nasal Problem Active 2022-10-30 Memor ia discharge discharge 02:06:21 l (disorder) (disorder) Drake rmann Active Problem 10/30/2022 [facility] [place] 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 Markel n (disorder) (disorder) Active Problem 10/30/2022 [facility] [place] Pain in Pain in Problem Active 2022-10-30 Me moria face face 02:06:21 l (finding) (finding) Herm nerissa Active Problem 10/30/2022 [facility],WYA Neurology [place] Thiamin Thiamin Problem Active 2022-10-30 Me moria deficiency deficiency 02:06:21 l (disorder) (disorder) He rmann Active Problem 10/30/2022 [facility] Neurology [place] Allergies, Adverse Reactions, Alerts Allergy Allergy Status Severity Reaction(s) Onset Inactive Treating Comm ents Source Name Type Date Date Clinician NO KNOWN Drug Active Univers ALLERGIE Class ity of S [facility] Family History Family Member Diagnosis Comments Start Date Stop Date Source Unknown Family Family history of Family History [facility] Member malignant neoplasm Social History Social Habit Start Date Stop Date Quantity Comments Source Sex Assigned [facility] Smoking Status Start Date Stop Date Source Unknown if ever smoked Universit y [facility] [place] [facility] Tobacco smoking status [facility] Medications Ordered Filled Start Stop Current Ordering Indication Dosage Frequency Signature Comments Components Source Medication Medication Date Date Medication? Clinician (SIG) Name Name thiamine Yes 100 mg = 1 Mem oria 100 mg oral 07-28 tab, PO, l tablet 20:04: Daily, X [place] 00 30 day, # 30 tab, 3 Refill(s), [id number], 154.94, cm, 07/28/22 14:50:00 CDT, Height, 84.716, kg, 07/28/22 14:50:00 CDT, Weight Belsomra 10 Yes TAKE 1 Mike torrey mg oral 7-21 TABLET BY l tablet 20:02: MOUTH [place] 00 EVERY DAY AT BEDTIME NEEDED ergocalcife Yes TAKE 1 Mike torrey rol 50,000 7-21 CAPSULE BY l intl units 20:02: MOUTH 1 Herm nerissa oral 00 TIME capsule WEEKLY Myrbetriq Myrbetriq Yes TREY 1 po qd x UT 50 MG Oral 50 MG Oral 911 DERESKA 30 days Physici Tablet Tablet 00:00: M.D. ans Extended Extended 00 Release 24 Release 24 Hour Hour carBAMazepi 2018-11 Yes TK 1 T PO U nivers ne 200 mg 2-18 BID ity of tablet 00:00: [address] meclizine 2018-11 Yes TK 1 T PO Uni vers 25 mg 2-18 TID ity of tablet 00:00: [address] traMADol 50 2018-11 Yes TK 1 T PO U nivers mg tablet 2-18 BID ity of 00:00: [address] carBAMazepi 2018-11 Yes TK 1 T PO U nivers ne 200 mg 2-18 BID ity of tablet 00:00: [address] meclizine 2018-11 Yes TK 1 T PO Uni vers 25 mg 2-18 TID ity of tablet 00:00: [place] [facility] traMADol 50 2018-11 Yes TK 1 T PO U nivers mg tablet 2-18 BID ity of 00:00: [facility] carBAMazepi 2018-11 Yes TK 1 T PO U nivers ne 200 mg 2-18 BID ity of tablet 00:00: [place] [facility] meclizine 2018-11 Yes TK 1 T PO Uni vers 25 mg 2-18 TID ity of tablet 00:00: [place] [facility] traMADol 50 2018-11 Yes TK 1 T PO U nivers mg tablet 2-18 BID ity of 00:00: [place] [facility] traMADol traMADol Yes UT HCl - 50 MG HCl - 50 MG P hysici Oral Tablet Oral Tablet a ns Omeprazole Omeprazole Yes UT 40 MG Oral 40 MG Oral Phy sici Capsule Capsule ans Delayed Delayed Release Release carBAMazepi carBAMazepi Yes U T ne ER 200 ne ER 200 Physi ci MG Oral MG Oral ans Tablet Tablet Extended Extended Release 12 Release 12 Hour Hour Vital Signs Vital Name Observation Time Observation Value Comments Source Body height 2020-01-16 157.5 cm University 19:18:00 [facility] Body weight 2020-01-16 81.647 kg University of 19:18:00 [facility] BMI 2020-01-16 32.92 kg/m2 University of 19:18:00 [facility] Systolic blood 2020-01-16 157 mm[Hg] University of pressure 19:18:00 [facility] Diastolic blood 2020-01-16 81 mm[Hg] University o f pressure 19:18:00 [facility] Body height 2020-01-16 157.5 cm University of 19:18:00 [facility] Body weight 2020-01-16 81.647 kg University of 19:18:00 [facility] BMI 2020-01-16 32.92 kg/m2 University of 19:18:00 [facility] Systolic blood 2020-01-16 157 mm[Hg] University of pressure 19:18:00 [facility] Diastolic blood 2020-01-16 81 mm[Hg] University o f pressure 19:18:00 [facility] Systolic (mm Hg) 2022-07-28 [facility] Drake lara 19:43:00 Diastolic (mm Hg) 2022-07-28 [facility] Mahamed whelan 19:43:00 Heart Rate 2022-07-28 [facility] Markel n 19:43:00 Respitory Rate 2022-07-28 [facility] nerissa 19:43:00 Height 2022-07-28 154.94 cm [facility] Markel n 19:43:00 Weight 2022-07-28 [facility] Markel n 19:43:00 BMI Calculated 2022-07-28 [facility] nerissa 19:43:00 Systolic (mm Hg) 2022-06-16 [facility] He rmann 19:56:00 Diastolic (mm Hg) 2022-06-16 [facility] H ermann 19:56:00 Heart Rate 2022-06-16 [facility] Markel n 19:56:00 Respitory Rate 2022-06-16 [facility] nerissa 19:56:00 Height 2022-06-16 157.48 cm Sharmaine Hardwickan n 19:56:00 Weight 2022-06-16 Sharmaine Hardwickan n 19:56:00 BMI Calculated 2022-06-16 [facility] nerissa 19:56:00 Systolic blood 2020-08-07 124 mm[Hg] Location: LUE; [place] [facility] pressure 15:11:00 Position: Sitting Diastolic blood 2020-08-07 80 mm[Hg] Location: LUE; [facility] pressure 15:11:00 Position: Sitting Body height 2020-08-07 62 [in_us] [facility] 15:11:00 Weight 2020-08-07 180 [lb_av] [facility] 15:11:00 Body mass index 2020-08-07 32.92 kg/m2 [facility] (BMI) [Ratio] 15:11:00 Body temperature 2020-08-07 97.1 [degF] Method: [facility] 15:11:00 Temporal Systolic blood 2020-04-17 116 mm[Hg] Location: LUE; [place] [facility] pressure 10:16:00 Position: Sitting Diastolic blood 2020-04-17 72 mm[Hg] Location: LUE; [place] [facility] pressure 10:16:00 Position: Sitting Body height 2020-04-17 62 [in_us] [facility] 10:16:00 Weight 2020-04-17 180 [lb_av] [facility] 10:16:00 Body mass index 2020-04-17 32.92 kg/m2 [facility] (BMI) [Ratio] 10:16:00 Body temperature 2020-04-17 97.2 [degF] Method: [facility] 10:16:00 Temporal Body height 2020-01-08 62 [in_us] [facility] 09:35:00 Weight 2020-01-08 180 [lb_av] [facility] 09:35:00 Body mass index 2020-01-08 32.92 kg/m2 [facility] (BMI) [Ratio] 09:35:00 Systolic blood 2020-01-08 158 mm[Hg] Location: LUE; [facility] pressure 09:35:00 Position: Sitting Diastolic blood 2020-01-08 74 mm[Hg] Location: LUE; [place] [facility] pressure 09:35:00 Position: Sitting Procedures Procedure Date / Time Performed Performing Clinician Sourc e CT Abdomen/Pelvis w/wo 2020-04-17 00:00:00 [facility] contrast [id number] [QL] CULTURE, URINE, 2020-04-17 00:00:00 [facility] ROUTINE [QLH] CULTURE, URINE, 2020-01-08 00:00:00 [facility] ROUTINE US Renal [id number] 2020-01-08 00:00:00 [facility] US Pelvic with 2020-01-08 00:00:00 [facility] Transvaginal and Pelvic Doppler [id number] History of [facility] Salpingo-oophorectomy Right Side History of Laparoscopy [facility] With Total Hysterectomy For Uterus 250g Or Less Gallstone [facility] analysis<sup>1</sup> Encounters Start End Encounter Admission Attending Care Care Encounter Source Date/Time Date/Time Type Type Clinicians Facility Department ID 2022-07-28 Outpatient Chapis [facility] [id number] Common 09:16:05 Megan [facility] 2022-10-27 2022-10-27 Ambulatory MHIE MNA [id number] Memoria 20:15:00 20:15:00 Pre-Reg Neurology 03 juliano Hester 2022-10-27 2022-10-27 Outpatient MHIE MHIE [id number] Memoria 14:15:00 14:15:00 03 juliano Hester 2022-10-27 2022-10-27 Outpatient JONI LezamaSCHGABRIEL 001 [id number] 14:15:00 14:15:00 Charleswarren Gray 2022-07-28 2022-07-29 Outpatient nullFlavo MNA [id number] Memoria 20:00:00 04:59:59 r Neurology 02 l Dashawn Mir 2022-07-28 2022-07-28 [facility] [id number] 15:00:00 23:59:59 Charles 02 Isaac 2022-07-28 2022-07-28 Outpatient MHIE MHIE [id number] Memoria 15:00:00 15:00:00 02 juliano Mir 2022-06-16 2022-06-17 Outpatient nullFlavo MNA [id number] Memoria 19:45:00 04:59:59 r Neurology 01 l Dashawn Mir 2022-06-16 2022-06-16 [facility] [id number] 14:45:00 23:59:59 Charles 01 Isaac 2022-06-16 2022-06-16 Outpatient MHIE MHIE [id number] Memoria 14:45:00 14:45:00 01 juliano [place] 2022-05-12 2022-05-12 Ambulatory nullFlavo MNA [id number] Memoria 14:30:00 14:30:00 Pre-Reg r Neurology 00 l Dashawn Mir 2022-05-12 2022-05-12 Outpatient L[facility] [id number] 09:30:00 09:30:00 Charles 00 Isaac 2022-04-05 2022-04-05 Outpatient MHIE MHIE [id number] Memoria 15:00:00 15:00:00 00 juliano Hester 2020-08-07 2020-08-07 [facility] CHANDA QUIROS Urogynecolo [id number] [place] 15:20:00 15:20:00 t; Argelia YANG [facility] - Pati Quita QUIROS M.D. 2020-05-02 2020-05-03 Outpt Diag nullFlavo [facility] [id number] Memoria 16:19:00 04:59:00 Services r Outpatient 00 l Imaging Mir Rojas 2020-05-02 2020-05-02 Outpatient GARY Quiros [id number] 11:19:00 23:59:00 Trey 00 [place] 2020-04-17 2020-04-17 AppointCHANDA Gamboa Urogynecolo [id number] [place] 10:30:00 10:30:00 t; Argelia YANG [facility] Physicmat QUIROS, [place] johnie YANG M.D. 2020-04-17 2020-04-17 CHANDA Cummins Urogynecolo [id number] [place] 10:10:00 10:10:00 t; Argelia YANG [facility] Physic CHULA, [place] johnie YANG M.D. 2020-02-26 2020-02-26 CHANDA Cummins Urogynecolo [id number] [place] 11:00:00 11:00:00 t; Argelia YANG [facility] Physic CHULA, [place] johnie YANG M.D. 2020-02-26 2020-02-26 CHANDA Cummins [facility] [id number] [place] 10:10:00 10:10:00 t; Argelia YANG Phy johnie Cristina M.D. 2020-01-23 2020-01-23 AppointCHANDA Don Urogynecolo [id number] [place] 11:00:00 11:00:00 t; BELEM SANDOVAL [facility] Physicmat KING, [place] johnie BELEM SANDOVAL 2020-01-16 2020-01-21 [facility] [id number] 13:11:56 15:12:13 Visit [facility] [id number] Surgical [id number] Specialti [id number] es 198 [place] 2020-01-16 2020-01-21 Office [facility] [id number] Univers 13:11:56 15:12:13 Visit [facility] [id number] it y of Surgical [id number] Chacho as Specialti [id number] Me dical es [address] [place] 2020-01-16 2020-01-16 [facility] [id number] Univers 13:15:00 13:46:56 [facility] 2020-01-08 2020-01-08 Appointmen RAYDanielle CHANDA Urogynecoleeanne [id number] [place] 09:20:00 09:20:00 jj YANG M.D. gy Center - Physicmat QUIROSQuita johnie YANG M.D. Results Test Test Test Results Result Source Description Time Comments Comments CT 2020-04- EXAM: CT ABDOMEN AND [facility] P hysicians Abdomen/Pelvis 06 PELVIS WITHOUT AND WITH w/wo contrast 11:28:00 CONTRASTDATE: 05/02/2020 [id number] 11:17 CDTINDICATION: - Left lower quadrant pain, abdominalADDITIONAL INFORMATION: None.COMPARISON: None.TECHNIQUE: Volumetric CT acquisition of the abdomen and pelvis before and afterthe intravenous administration contrast. Axial, coronal and sagittalreconstructions.Po stcontrast phases: Venous and delayedIV contrast: 100 mL OmnipaqueOral contrast: Omni mixCT Radiation Dose DLP 1961 mGy-cmAEC, mA/kV adjustment by patient size, and/or iterative reconstructiontechnique were used, per departmental dose-optimization program.FINDINGS: Lines and tubes: None.Lower thorax: Platelike atelectatic changes in the lung bases.Liver and biliary tree: Normal.Gallbladder: Surgically absent.Pancreas: Mildly atrophic.Spleen: Normal.Adrenals: Normal.Kidneys and ureters: 1 cm right renal cyst. Otherwise unremarkable. Nohydronephrosis. No nephrolithiasis.Bladder: Decompressed.Reproductive organs: Hysterectomy. Unremarkable adnexal regions.Gastrointestinal tract: Mild diverticulosis. Tiny hiatal hernia. Otherwiseunremarkable with normal caliber.Appendix: Normal.Peritoneum and retroperitoneum: No ascites or free air.Lymph nodes: No pathologic adenopathy.Vasculature: Moderate atherosclerotic disease.Bones: No acute abnormality. Moderate disc disease at L4-S1.Soft tissues: Unremarkable.IMPRESSION: 1. Diverticulosis without CT evidence of acute diverticulitis.2. Small right renal cyst.3. Tiny hiatal hernia.4. Cholecystectomy.5. Hysterectomy.--Read by: Jose Christensen MDictated Date/time: 05/03/20 10:23Electronically Signed by: Jose Christensen 05/03/2010:29FINAL REPORT [O] Urine Dipstick (In Office) 2020-04-17 11:33:00 Test Item Value Reference Range Interpretation Comme nts Glucose (test code = Glucose) NEG N LEUKOCYTES (test code = LEUKOCYTES) NEG N NITRITE; Normal (test code = 24930-4) NEG N UROBILINOGEN; Normal (test code = 34281-1) 0.2 N PROTEIN; Normal (test code = 27913-4) NEG N pH (test code = pH) 5.5 N URINE BLOOD; Abnormal (test code = 91729-5) 2+ A SPECIFIC GRAVITY; Normal (test code = 2965-2) 1.030 N KETONES; Normal (test code = 06139-6) NEG N BILIRUBIN; Normal (test code = 92016-9) NEG N [facility][QL] CULTURE, URINE, [id number] 00:00:00 Test Item Value Reference Range Interpretation Comments CULTURE (test code = See Comment CULTURE , URINE, CULTURE) ROUTINE Micro N umber: [id number] Test S tatus: Final Specimen Source: URINE Specimen Qualit y: Adequate Result : No Growth [facility][O] Urine Dipstick (In Office)2020-01-23 11:21:00 Test Item Value Reference Range Interpretation Comments Glucose (test code = Glucose) neg N LEUKOCYTES (test code = LEUKOCYTES) neg N NITRITE; Normal (test code = 26057-5) neg N UROBILINOGEN; Normal (test code = 0.2 N 86546-5) PROTEIN; Normal (test code = 85550-1) neg N pH (test code = pH) 6.0 N URINE BLOOD; Abnormal (test code = trace A 58750-5) SPECIFIC GRAVITY; Normal (test code = <=1.005 N 2965-2) KETONES; Normal (test code = 72887-1) neg N BILIRUBIN; Normal (test code = neg N 81841-7) [facility]] CULTURE, URINE, [id number] 11:37:01 Test Item Value Reference Range Interpretation Comments FINAL REPORT (test code = FINAL No Growth REPORT) [facility][O] Urine Dipstick (In Office)2020-01-08 10:02:00 Test Item Value Reference Range Interpretation Comments Glucose (test code = Glucose) neg N LEUKOCYTES (test code = LEUKOCYTES) neg N NITRITE; Normal (test code = 94730-1) neg N UROBILINOGEN; Normal (test code = 0.2 N 82503-9) PROTEIN; Abnormal (test code = 83051-8) trace A pH (test code = pH) 6.0 N URINE BLOOD; Abnormal (test code = 2+ A 87349-9) SPECIFIC GRAVITY; Normal (test code = 1.030 N 2965-2) KETONES; Normal (test code = 67822-1) neg N BILIRUBIN; Normal (test code = 94265-4) neg N [facility]
[2023-04-30] MEDS ORDERED: ACETAMINOPHEN 500 MG TAB ONE (07:24)
[2023-04-30] MEDS ORDERED: IBUPROFEN 200 MG TAB PO ONE (07:25)
--- NOTE | 2023-04-30 08:53 | EDPHYS ---
Physician Documentation [facility] Name: Manju Lancaster Age: 73 yrs Sex: Female : 1950 Arrival Date: 04/30/2023 Time: 06:13 Bed 18 Private MD: ED Physician Maynor Sandoval HPI: 04/30 08:31 This 73 yrs old Female presents to ER via Ambulatory with complaints of Ear bs3 Pain. 08:31 73-year-old female history of GERD presents with right ear pain and sore throat her bs3 symptoms been going on for approximately 2 days she denies fever chills denies chest pain shortness of breath or anything else bothering her she notes that she took 1 Tylenol prior to arrival no sick contacts no recent travel. Historical: - Allergies: 06:45 NKA; kd3 - PMHx: 06:45 GERD; Vertigo; kd3 - Immunization history:: Adult Immunizations up to date. - Social history:: Smoking status: Patient denies any tobacco usage or history of. ROS: 08:31 Constitutional: Negative for fever, chills bs3 08:31 All other systems are negative. Exam: 08:31 Constitutional: This is a well developed, well nourished patient who is awake, alert, bs3 and in no acute distress. Head/Face: Normocephalic, atraumatic. Eyes: Pupils equal round and reactive to light, extra-ocular motions intact. Lids and lashes normal. ENT: Her right TM is slightly red and retracted she had no pain with manipulation of her tragus she has bilateral tonsillar exudate Vital Signs: 06:43 BP 172 / 92; Pulse 84; Resp 16; Temp 98.6(O); Pulse Ox 94% on R/A; Weight 84.82 kg; kd3 Height 5 ft. 2 in. ; 08:34 BP 145 / 80; Pulse 79; Resp 19; Pulse Ox 94% on R/A; kc6 06:43 Body Mass Index 34.20 (84.82 kg, 157.48 cm) kd3 MDM: 07:16 Patient medically screened. bs3 08:31 Differential diagnosis: acute otalgia, viral syndrome, otitis media. Data reviewed: bs3 vital signs, nurses notes. 08:50 ED course: Patient left prior to results I reviewed the results negative her positive bs3 testing given that she is not febrile she is well-appearing there is no signs of acute otitis externa this is likely a viral illness given the ear pain and throat symptoms. 04/30 07:12 Order name: Strep [facility] 04/30 07:12 Order name: Influenza Screen (a \T\ B); Complete Time: 08:52 [facility] 04/30 07:48 Order name: Throat Culture EDMS Administered Medications: 07:23 Drug: Ibuprofen PO 600 mg Route: PO; kc6 08:35 Follow up: Response: No adverse reaction kc6 07:23 Drug: Acetaminophen PO 500 mg Route: PO; kc6 08:35 Follow up: Response: No adverse reaction kc6 Disposition Summary: 04/30/23 08:52 Discharge Ordered Location: Home bs3 Problem: new bs3 Symptoms: have improved bs3 Condition: Stable bs3 Diagnosis - Otalgia bs3 - Acute upper respiratory infection, unspecified bs3 Followup: bs3 - With: Private Physician - When: 1 - 2 days - Reason: Re-evaluation by your physician Discharge Instructions: - Discharge Summary Sheet bs3 - Upper Respiratory Infection, Adult bs3 Forms: - Medication Reconciliation Form bs3 - Thank You Letter bs3 - Antibiotic Education bs3 - Prescription Opioid Use bs3 Signatures: Dispatcher [employer] Mary Boykin RN RN kd3 Michelle Lou RN RN ha1 Ramila Lan RN RN kc6 Maynor Sandoval MD MD bs3
--- NOTE | 2023-04-30 08:53 | ER ---
Nurse's Notes [facility] Name: Manju Lancaster Age: 73 yrs Sex: Female : 1950 Arrival Date: 04/30/2023 Time: 06:13 Bed 18 Private MD: Diagnosis: Otalgia;Acute upper respiratory infection, unspecified Presentation: 04/30 06:43 Chief complaint: Patient states: I have really bad right ear pain that goes down the kd3 right side of my neck that started on Monday. It is a 10/10 pain. Coronavirus screen: Vaccine status: Patient reports receiving the 2nd dose of the covid vaccine. Ebola Screen: No symptoms or risks identified at this time. Initial Sepsis Screen: Does the patient meet any 2 criteria? No. Patient's initial sepsis screen is negative. Does the patient have a suspected source of infection? No. Patient's initial sepsis screen is negative. Risk Assessment: Do you want to hurt yourself or someone else? Patient reports no desire to harm self or others. Onset of symptoms was April 30, 2023. 06:43 Method Of Arrival: Ambulatory kd3 06:43 Acuity: CHRISTOPHE 4 kd3 Triage Assessment: 06:45 General: Appears uncomfortable, Behavior is calm, cooperative. Pain: Complains of pain kd3 in right ear. EENT: Reports pain in right ear and right jaw. Historical: - Allergies: 06:45 NKA; kd3 - PMHx: 06:45 GERD; Vertigo; kd3 - Immunization history:: Adult Immunizations up to date. - Social history:: Smoking status: Patient denies any tobacco usage or history of. Screenin:34 [facility] ED Fall Risk Assessment (Adult) History of falling in the last 3 months, ha1 including since admission No falls in past 3 months (0 pts) Confusion or Disorientation No (0 pts) Intoxicated or Sedated No (0 pts) Impaired Gait No (0 pts) Mobility Assist Device Used No (0 pt) Altered Elimination No (0 pt) Score/Fall Risk Level 0 - 2 = Low Risk Oriented to surroundings, Maintained a safe environment, Educated pt \\T\\ family on fall prevention, incl call for assistance when getting out of bed. Abuse screen: Denies threats or abuse. Denies injuries from another. Nutritional screening: No deficits noted. Tuberculosis screening: No symptoms or risk factors identified. Assessment: 06:34 General: Appears uncomfortable, Behavior is calm, cooperative. Pain: Complains of pain ha1 in right ear Pain does not radiate. Alleviated by medications. Neuro: Level of Consciousness is awake, alert, obeys commands, Oriented to person, place, time, situation. Cardiovascular: Capillary refill < 3 seconds Patient's skin is warm and dry. Respiratory: Airway is patent Respiratory effort is even, unlabored, Respiratory pattern is regular, symmetrical. GI: No signs and/or symptoms were reported involving the gastrointestinal system. : No signs and/or symptoms were reported regarding the genitourinary system. EENT: Reports ear ache. Derm: Skin is pink, warm \\T\\ dry. Musculoskeletal: Circulation, motion, and sensation intact. Range of motion: intact in all extremities. 07:23 Reassessment: Patient appears in no apparent distress at this time. No changes from kc6 previously documented assessment. Patient and/or family updated on plan of care and expected duration. Pain level reassessed. Patient is alert, oriented x 3, equal unlabored respirations, skin warm/dry/pink. 08:23 Reassessment: Patient appears in no apparent distress at this time. No changes from kc6 previously documented assessment. Patient and/or family updated on plan of care and expected duration. Pain level reassessed. Patient is alert, oriented x 3, equal unlabored respirations, skin warm/dry/pink. Vital Signs: 06:43 BP 172 / 92; Pulse 84; Resp 16; Temp 98.6(O); Pulse Ox 94% on R/A; Weight 84.82 kg; kd3 Height 5 ft. 2 in. ; 08:34 BP 145 / 80; Pulse 79; Resp 19; Pulse Ox 94% on R/A; kc6 06:43 Body Mass Index 34.20 (84.82 kg, 157.48 cm) kd3 ED Course: 06:26 Patient arrived in ED. ja2 06:35 Patient has correct armband on for positive identification. Bed in low position. Call ha1 light in reach. Side rails up X 1. 06:45 Triage completed. kd3 06:45 Arm band placed on right wrist. kd3 07:15 Ramila Lan RN is Primary Nurse. kc6 07:16 Maynor Sandoval MD is Attending Physician. bs3 08:27 pt left the department stating " she's tired of waiting, call me with the results. if I eb need a prescription [facility] in [place]" .. she also states "this is ridiculous". 09:11 No provider procedures requiring assistance completed. Patient did not have IV access kc6 during this emergency room visit. Administered Medications: 07:23 Drug: Ibuprofen PO 600 mg Route: PO; kc6 08:35 Follow up: Response: No adverse reaction kc6 07:23 Drug: Acetaminophen PO 500 mg Route: PO; kc6 08:35 Follow up: Response: No adverse reaction kc6 Medication: 09:11 VIS not applicable for this client. kc6 Outcome: 08:52 Discharge ordered by . bs3 09:11 Discharged to home ambulatory. kc6 09:11 Condition: stable 09:11 Discharge instructions given to patient, Instructed on discharge instructions, follow up and referral plans. Demonstrated understanding of instructions, follow-up care. 09:11 Patient left the ED. kc6 Signatures: Fabiola Shafer Jessica ja2 Doucette, Kyli RN RN kd3 Michelle Lou RN RN ha1 Ramila Lan RN RN kc6 Maynor Sandoval MD MD bs3 Corrections: (The following items were deleted from the chart) 06:45 06:40 Chief complaint: kd3 kd3
[2023-04-30 09:15] VITALS: TEMP 98.6; O2SAT 94
[2023-04-30 09:16] VITALS: BP 145/80
== END 2023-04-30 09:11 | disposition home or self-care (01) ==
LOC: SUPCPDRO 06:13 → ER 06:13
DX: J06.9 Acute upper respiratory infection, unspecified (principal)
CPT/HCPCS: 87070; 87081; 87804; 99283

== ENCOUNTER 2024-03-23 11:52 | Emergency (ER) | payer OTHER ==
[2024-03-23] MEDS ORDERED: METHYLPREDNISOLONE 125 MG INJ ONE (12:28)
--- NOTE | 2024-03-23 12:57 | EDPHYS ---
Physician Documentation [facility] Name: Manju Lancaster Age: 74 yrs Sex: Female : 1950 Arrival Date: 03/23/2024 Time: 11:52 Bed 15 Private MD: ED Physician Anson Burrell HPI: 03/23 12:17 This 74 yrs old Female presents to ER via Unassigned with complaints of Rash - sb4 Poison [place]. 12:17 The patient's rash thought to be caused by Dermatitis. The rash is located on the body sb4 diffusely. The rash can be described as urticarial. Onset: The symptoms/episode began/occurred 2 day(s) ago. Associated signs and symptoms: Pertinent positives: itching, Pertinent negatives: swelling of lips, swelling of throat, swelling of tongue, wheezing. Treatment given at home: zyrtec. The patient has experienced a previous episode. The patient has not recently seen a physician. Historical: - Allergies: 13:02 NKA; tl4 - Home Meds: 13:02 None [Active]; tl4 - PMHx: 13:02 GERD; Vertigo; tl4 - PSHx: 13:02 None; tl4 - Immunization history:: Adult Immunizations unknown. - Infectious Disease History:: Denies. - Social history:: Smoking status: Patient denies any tobacco usage or history of. Patient/guardian denies using alcohol, street drugs. ROS: 12:17 Constitutional: Negative for fever, chills, and weight loss, sb4 12:17 Skin: Positive for rash, 12:17 All other systems are negative, Exam: 12:17 Constitutional: This is a well developed, well nourished patient who is awake, alert, sb4 and in no acute distress. Head/Face: Normocephalic, atraumatic. Eyes: Extra-ocular motions intact. Periorbital areas with no swelling, redness, or edema. ENT: Mucous membranes moist. MS/ Extremity: Pulses equal, no cyanosis. Neurovascular intact. Full, normal range of motion. Neuro: Awake and alert, GCS 15, oriented to person, place, time, and situation. Motor strength 5/5 in all extremities. Sensory grossly intact. 12:17 Skin: contact dermatitis, and is diffusely located, Vital Signs: 12:15 BP 160 / 72; Pulse 68; Resp 18; Temp 98.5(O); Pulse Ox 99% on R/A; Weight 78.47 kg; tl4 Height 5 ft. 2 in. ; Pain 0/10; 13:01 BP 140 / 92; Pulse 67; Resp 16; Temp 98.1(O); Pulse Ox 99% on R/A; Pain 0/10; tl4 12:15 Body Mass Index 31.64 (78.47 kg, 157.48 cm) tl4 12:15 Pain Scale: Adult tl4 13:01 Pain Scale: Adult tl4 MDM: 12:02 Patient medically screened. sb4 13:00 Data reviewed: vital signs, nurses notes, and as a result, I will discharge patient. sb4 Counseling: I had a detailed discussion with the patient and/or guardian regarding the historical points, exam findings, and any diagnostic results supporting the discharge/admit diagnosis, to return to the emergency department if symptoms worsen or persist or if there are any questions or concerns that arise at home. Administered Medications: 12:35 Drug: MethylPREDNISolone Sodium Succinate IM 60 mg IM once Route: IM; Site: left tl4 ventrogluteal; 12:56 Follow up: Response: No adverse reaction tl4 Disposition Summary: 03/23/24 12:57 Discharge Ordered Notes: Location: Home sb4 Problem: new sb4 Symptoms: have improved sb4 Condition: Stable sb4 Diagnosis - Irritant contact dermatitis due to plants, except food sb4 Followup: sb4 - With: Emergency Department - When: As needed - Reason: Trouble breathing, Worsening of condition Discharge Instructions: - Discharge Summary Sheet sb4 - Poison [place] Dermatitis sb4 Forms: - Patient Portal Instructions sb4 - Leadership Thank You Letter sb4 Prescriptions: - Prednisone 20 mg Oral Tablet - take 3 tablets ORAL route once daily for 5 days; 15 tablet; Refills: 0, Product sb4 Selection Permitted Signatures: Melani Mckinney PA-C PA-C sb4 Bakari Orantes RN RN tl4
--- NOTE | 2024-03-23 12:57 | ER ---
Nurse's Notes [facility] Name: Manju Lancsater Age: 74 yrs Sex: Female : 1950 Arrival Date: 03/23/2024 Time: 11:52 Bed 15 Private MD: Diagnosis: Irritant contact dermatitis due to plants, except food Presentation: 03/23 12:15 Chief complaint: Patient states: Pt c/o red, raised redness to arms and back after tl4 poison rosamaria exposure on . No relief with zyrtec. Coronavirus screen: At this time, the client does not indicate any symptoms associated with coronavirus-19. Ebola Screen: No symptoms or risks identified at this time. Initial Sepsis Screen: Does the patient meet any 2 criteria? No. Patient's initial sepsis screen is negative. Does the patient have a suspected source of infection? No. Patient's initial sepsis screen is negative. Risk Assessment: Do you want to hurt yourself or someone else? Patient reports no desire to harm self or others. Onset of symptoms was March 21, 2024. 12:15 Method Of Arrival: Ambulatory tl4 12:15 Acuity: CHRISTOPHE 4 tl4 Triage Assessment: 12:23 General: Appears in no apparent distress. Behavior is calm, cooperative. Pain: Denies tl4 pain. EENT: No signs and/or symptoms were reported regarding the EENT system. Neuro: Level of Consciousness is awake, alert, obeys commands, Oriented to person, place, time, situation, Moves all extremities. Full function Gait is steady, Speech is normal. Cardiovascular: Capillary refill < 3 seconds Patient's skin is warm and dry. Respiratory: Airway is patent Respiratory effort is even, unlabored, Respiratory pattern is regular, symmetrical, Breath sounds are clear bilaterally. GI: No signs and/or symptoms were reported involving the gastrointestinal system. : No signs and/or symptoms were reported regarding the genitourinary system. Derm: Rash noted that is red, raised, on back, right arm and left arm. Musculoskeletal: No signs and/or symptoms reported regarding the musculoskeletal system. Historical: - Allergies: 13:02 NKA; tl4 - Home Meds: 13:02 None [Active]; tl4 - PMHx: 13:02 GERD; Vertigo; tl4 - PSHx: 13:02 None; tl4 - Immunization history:: Adult Immunizations unknown. - Infectious Disease History:: Denies. - Social history:: Smoking status: Patient denies any tobacco usage or history of. Patient/guardian denies using alcohol, street drugs. Screenin:25 [facility] ED Fall Risk Assessment (Adult) History of falling in the last 3 months, tl4 including since admission No falls in past 3 months (0 pts) Confusion or Disorientation No (0 pts) Intoxicated or Sedated No (0 pts) Impaired Gait No (0 pts) Mobility Assist Device Used No (0 pt) Altered Elimination No (0 pt) Score/Fall Risk Level 0 - 2 = Low Risk Oriented to surroundings, Maintained a safe environment, Educated pt \T\ family on fall prevention, incl call for assistance when getting out of bed, Assessed \T\ reinforced patient's understanding of fall precautions. Abuse screen: Denies threats or abuse. Denies injuries from another. Nutritional screening: No deficits noted. Tuberculosis screening: No symptoms or risk factors identified. Assessment: 13:01 Reassessment: Patient and/or family updated on plan of care and expected duration. Pain tl4 level reassessed. Patient is alert, oriented x 3, equal unlabored respirations, skin warm/dry/pink. Patient states feeling better. Vital Signs: 12:15 BP 160 / 72; Pulse 68; Resp 18; Temp 98.5(O); Pulse Ox 99% on R/A; Weight 78.47 kg; tl4 Height 5 ft. 2 in. ; Pain 0/10; 13:01 BP 140 / 92; Pulse 67; Resp 16; Temp 98.1(O); Pulse Ox 99% on R/A; Pain 0/10; tl4 12:15 Body Mass Index 31.64 (78.47 kg, 157.48 cm) tl4 12:15 Pain Scale: Adult tl4 13:01 Pain Scale: Adult tl4 ED Course: 11:55 Patient arrived in ED. mg5 11:55 Melani Mckinney PA-C is PHCP. sb4 11:55 Anson Burrell MD is Attending Physician. sb4 12:14 Bakari Orantes, ALTAGRACIA is Primary Nurse. tl4 12:23 Triage completed. tl4 12:25 Arm band placed on right wrist. tl4 12:25 Patient has correct armband on for positive identification. Bed in low position. Call tl4 light in reach. Side rails up X 1. Provided Education on: ED process. Client placed on continuous cardiac and pulse oximetry monitoring. NIBP monitoring applied. Door closed. Noise minimized. Moved to private room. 12:25 No provider procedures requiring assistance completed. Patient did not have IV access tl4 during this emergency room visit. Administered Medications: 12:35 Drug: MethylPREDNISolone Sodium Succinate IM 60 mg IM once Route: IM; Site: left tl4 ventrogluteal; 12:56 Follow up: Response: No adverse reaction tl4 Medication: 12:25 VIS not applicable for this client. tl4 Outcome: 12:57 Discharge ordered by . sb4 13:01 Discharged to home ambulatory, tl4 13:01 Condition: stable 13:01 Discharge instructions given to patient, Instructed on discharge instructions, follow up and referral plans. medication usage, Demonstrated understanding of instructions, follow-up care, medications, Prescriptions given X 1, 13:02 Patient left the ED. tl4 Signatures: Melani Mckinney PA-C PA-C sb4 Sharon Gloria mg5 Bakari Orantes, RN RN tl4
[2024-03-23 13:30] VITALS: BP 140/92; TEMP 98.1; O2SAT 99
== END 2024-03-23 13:02 | disposition home or self-care (01) ==
LOC: ER 11:52
DX: L24.7 Irritant contact dermatitis due to plants, except food (principal)
CPT/HCPCS: J2919

== ENCOUNTER 2024-11-09 19:59 | Emergency (ER) | payer OTHER ==
[2024-11-09] MEDS ORDERED: LIDOCAINE 1% 20 ML MDV ONE (20:53)
[2024-11-09] MEDS ORDERED: CEFAZOLIN SODIUM 1 GM/VIAL ONE (20:54)
[2024-11-09] MEDS ORDERED: TDAP (DIPHTH,PERTUSS(ACELL),TET VAC) 0.5 ML VIAL IMVAC ONE (20:54)
[2024-11-09] MEDS ORDERED: LIDOCAINE HCL JELLY 2% 6 ML SYRINGE TOP ONE (20:54)
[2024-11-09] MEDS ORDERED: NA CHLORIDE 0.9% 100 ML ONE (20:55)
--- NOTE | 2024-11-09 22:56 | ER ---
Nurse's Notes [facility] Name: Manju Lancaster Age: 74 yrs Sex: Female : 1950 Arrival Date: 11/09/2024 Time: 19:59 Bed 18 Private MD: Diagnosis: Bitten by dog Presentation: 11/09 20:04 Chief complaint: EMS states: attacked by neighbors dog. unknown vaccination status. lg3 [place] [employer] on scene. bite wounds noted to bilateral calf's, left inner ankle, right posterior thigh. bleeding controlled. pain 10. Coronavirus screen: Client denies travel out of the [place] in the last 14 days. At this time, the client does not indicate any symptoms associated with coronavirus-19. Ebola Screen: No symptoms or risks identified at this time. Risk Assessment: Do you want to hurt yourself or someone else? Patient reports no desire to harm self or others. Onset of symptoms was November 09, 2024. 20:04 Method Of Arrival: EMS: [facility] lg3 20:04 Acuity: CHRISTOPHE 3 lg3 20:30 Initial Sepsis Screen: Does the patient meet any 2 criteria? No. Patient's initial br2 sepsis screen is negative. Does the patient have a suspected source of infection? No. Patient's initial sepsis screen is negative. Triage Assessment: 20:09 General: Appears in no apparent distress. uncomfortable, Behavior is calm, cooperative. lg3 Pain: Complains of pain in right leg and left leg Pain currently is 10 out of 10 on a pain scale. EENT: No deficits noted. No signs and/or symptoms were reported regarding the EENT system. Neuro: No deficits noted. Carter Agitation-Sedation Scale (RASS): 0 - Alert and Calm Level of Consciousness is awake, alert, obeys commands, Oriented to person, place, time, situation. Cardiovascular: No deficits noted. Denies chest pain, shortness of breath. Respiratory: No deficits noted. Airway is patent Respiratory effort is even, unlabored, Respiratory pattern is regular, symmetrical. GI: No deficits noted. No signs and/or symptoms were reported involving the gastrointestinal system. : No signs and/or symptoms were reported regarding the genitourinary system. Derm: Skin is intact, is healthy with good turgor, Skin is dry, Skin is normal, Skin temperature is warm Wound noted right hamstring, right calf, left calf and left medial ankle. Musculoskeletal: No deficits noted. No signs and/or symptoms reported regarding the musculoskeletal system. Circulation, motion, and sensation intact. Range of motion: intact in all extremities. Historical: - Allergies: 20:09 NKA; lg3 - Home Meds: 20:09 losartan oral [Active]; lg3 - PMHx: 20:09 GERD; Hypertensive disorder; Vertigo; lg3 - PSHx: 20:09 None; lg3 - Immunization history:: Adult Immunizations up to date. - Infectious Disease History:: Denies. - Social history:: Smoking status: Patient denies any tobacco usage or history of. Patient uses alcohol, occasionally. Screenin:30 [facility] ED Fall Risk Assessment (Adult) History of falling in the last 3 months, br2 including since admission No falls in past 3 months (0 pts) Confusion or Disorientation No (0 pts) Intoxicated or Sedated No (0 pts) Impaired Gait No (0 pts) Mobility Assist Device Used No (0 pt) Altered Elimination No (0 pt) Score/Fall Risk Level 0 - 2 = Low Risk Oriented to surroundings. Abuse screen: Denies threats or abuse. Denies injuries from another. Nutritional screening: No deficits noted. Tuberculosis screening: No symptoms or risk factors identified. Assessment: 20:30 Reassessment: Patient and/or family updated on plan of care and expected duration. Pain br2 level reassessed. Patient is alert, oriented x 3, equal unlabored respirations, skin warm/dry/pink. General: Appears uncomfortable, Behavior is calm, cooperative. Pain: Complains of pain in lateral aspect of left thigh, left calf, medial aspect of left calf and left quadriceps Pain does not radiate. Pain currently is 10 out of 10 on a pain scale. Quality of pain is described as aching. Neuro: Level of Consciousness is awake, alert, obeys commands, confused, Oriented to person, place, time. Cardiovascular: Capillary refill < 3 seconds. Respiratory: Airway is patent Respiratory effort is even, unlabored, Respiratory pattern is regular, symmetrical. GI: No signs and/or symptoms were reported involving the gastrointestinal system. : No signs and/or symptoms were reported regarding the genitourinary system. EENT: No signs and/or symptoms were reported regarding the EENT system. Derm: Skin has skin tears on multiple lacerations and skin tears to billateral posterior upper legs. 22:30 Reassessment: No changes from previously documented assessment. Patient and/or family br2 updated on plan of care and expected duration. Pain level reassessed. Patient is alert, oriented x 3, equal unlabored respirations, skin warm/dry/pink. Vital Signs: 21:12 Pulse 80; Resp 18; Pulse Ox 98% ; Pain 10/10; br2 21:46 BP 176 / 81; Pulse 75; Resp 18 S; Pulse Ox 96% on R/A; br2 23:00 BP 170 / 80; Pulse 80; Resp 18; Pulse Ox 96% ; br2 21:12 Pain Scale: Adult br2 ED Course: 20:04 Patient arrived in ED. lg3 20:09 Triage completed. lg3 20:09 Arm band placed on right wrist. lg3 20:22 [facility]C [facility]. kb 20:22 Julius San MD is Attending Physician. kb 20:30 Patient has correct armband on for positive identification. Bed in low position. Call br2 light in reach. Side rails up X 1. Provided Education on: plan of care. 20:30 Inserted saline lock: 20 gauge in left antecubital area, using aseptic technique. br2 20:45 Sushma Morse, RN is Primary Nurse. br2 21:10 Wound care: to puncture. br2 21:10 Wound care: to laceration, abrasion, was cleaned with with normal saline, Patient br2 tolerated well. 22:50 Dressings: Kerlix non-adherent dressing x 2 lateral aspect of left calf and left calf. br2 23:09 Assist provider with laceration repair Set up tray. Performed by Gail DARDEN. br2 23:09 IV discontinued, intact, bleeding controlled, No redness/swelling at site. Pressure br2 dressing applied. Administered Medications: 21:10 Drug: Boostrix Tdap IM 0.5 ml IM once; as a single dose Route: IM; Site: left deltoid; br2 22:00 Follow up: Response: No adverse reaction br2 21:10 Drug: ceFAZolin IVPB 1 grams IVPB once Route: IVPB; Site: left antecubital; br2 22:00 Follow up: Response: No adverse reaction; IV Status: Completed infusion; IV Intake: br2 100ml 21:12 Drug: Lidocaine Mucous Membrane Gel 2 % 1 application Mucous Membrane once Route: br2 Mucous Membrane; 22:00 Follow up: Response: No adverse reaction br2 23:13 Drug: Lidocaine Infiltration (1 %) 1 vials 20 ml Infiltration once; to bedside Volume: br2 20 ml; Route: Infiltration; 23:13 Follow up: Response: No adverse reaction br2 Medication: 23:00 Vaccine Information Statement (VIS) provided today. Questions and/or concerns br2 addressed. VIS edition date: July 02, 2021. Intake: 22:00 IV: 100ml; Total: 100ml. br2 Outcome: 22:55 Discharge ordered by . elizabeth 23:09 Discharged to home ambulatory, br2 23:09 Condition: improved 23:09 Discharge instructions given to patient, Instructed on discharge instructions, Demonstrated understanding of instructions, follow-up care, medications, Prescriptions given X 1, 23:17 Patient left the ED. br2 Signatures: Gail Kim, ADELSO GOLDEN-Fany Hernandez, RN RN lg3 Sushma Morse, RN RN br2
--- NOTE | 2024-11-09 22:56 | EDPHYS ---
Physician Documentation [facility] – [place], [place] Name: Manju Lancaster Age: 74 yrs Sex: Female : 1950 Arrival Date: 11/09/2024 Time: 19:59 Bed 18 Private MD: ED Physician Julius San HPI: 11/10 00:18 This 74 yrs old Female presents to ER via EMS with complaints of dog bite. 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 States she was bitten by her neighbors dog. PD was on scene and report filed. . Historical: - Allergies: 11/09 20:09 NKA; lg3 - Home Meds: 20:09 losartan oral [Active]; lg3 - PMHx: 20:09 GERD; Hypertensive disorder; Vertigo; lg3 - PSHx: 20:09 None; lg3 - Immunization history:: Adult Immunizations up to date. - Infectious Disease History:: Denies. - Social history:: Smoking status: Patient denies any tobacco usage or history of. Patient uses alcohol, occasionally. ROS: 11/10 00:17 Constitutional: As per HPI kb Exam: 00:17 Constitutional: This is a well developed, well nourished patient who is awake, alert, kb and in no acute distress. Head/Face: Normocephalic, atraumatic. ENT: Moist Mucous membranes Cardiovascular: Regular rate Respiratory: Respirations even and unlabored. No increased work of breathing. Talking in full sentences MS/ Extremity: Pulses equal, no cyanosis. Neurovascular intact. Full, normal range of motion. Neuro: Awake and alert, GCS 15, oriented to person, place, time, and situation. 00:17 Skin: injury, bite(s), of the right hamstring, right calf and left calf, multiple punctures, abrasions and lacerations with surrounding ecchymosis, Vital Signs: 11/09 21:12 Pulse 80; Resp 18; Pulse Ox 98% ; Pain 10/10; br2 21:46 BP 176 / 81; Pulse 75; Resp 18 S; Pulse Ox 96% on R/A; br2 23:00 BP 170 / 80; Pulse 80; Resp 18; Pulse Ox 96% ; br2 21:12 Pain Scale: Adult br2 Laceration: 22:51 Wound Repair of subcutaneous laceration to right hamstring. puncture. Distal kb neuro/vascular/tendon intact. Anesthesia: Local anesthetic administered with 0.5 mls of 1% lidocaine. Wound prep: Extensive cleansing with hibiclenz by me, Wound irrigation with saline by me. Skin closed with 1 4-0 Prolene using simple sutures and sterile technique. Patient tolerated well. 22:51 Wound Repair of subcutaneous laceration to left calf. puncture. Distal kb neuro/vascular/tendon intact. Anesthesia: Local anesthetic administered with 0.5 mls of 1% lidocaine. Wound prep: Extensive cleansing with hibiclenz by me, Wound irrigation with saline by me. Skin closed with 1 4-0 Prolene using simple sutures and sterile technique. Patient tolerated well. 22:51 Wound Repair of subcutaneous laceration to left calf. puncture. Distal kb neuro/vascular/tendon intact. Anesthesia: Local anesthetic administered with 0.5 mls of 1% lidocaine. Wound prep: Extensive cleansing with hibiclenz by me, Wound irrigation with saline by me. Skin closed with 1 4-0 Prolene using simple sutures and sterile technique. Patient tolerated well. 22:51 Wound Repair of 3cm ( 1.2in ) subcutaneous laceration to medial aspect of left calf. kb Irregularly shaped.. Skin/tissue flap noted.. Distal neuro/vascular/tendon intact. Anesthesia: Local anesthetic administered with 4 mls of 1% lidocaine. Wound prep: Extensive cleansing with hibiclenz by me, Wound irrigation with saline by me. Skin closed with 3 4-0 Prolene using simple sutures and sterile technique. Patient tolerated well. 22:51 Wound Repair of 5cm ( 2.0in ) subcutaneous laceration to medial aspect of left calf. kb Irregularly shaped.. Skin/tissue flap noted.. Distal neuro/vascular/tendon intact. Anesthesia: Local anesthetic administered with 5 mls of 1% lidocaine. Wound prep: Extensive cleansing with hibiclenz by me, Wound irrigation with saline by me. Skin closed with 5 4-0 Prolene using simple sutures and sterile technique. Patient tolerated well. MDM: 20:22 Medical Screening Exam initiated 11/10 00:18 Differential diagnosis: superficial laceration, tendon injury, vascular injury. Data kb reviewed: vital signs, nurses notes. Historians other than the Patient: Family Member: family. Counseling: I had a detailed discussion with the patient and/or guardian regarding the historical points, exam findings, and any diagnostic results supporting the discharge/admit diagnosis, the need for outpatient follow up, a family practitioner, to return to the emergency department if symptoms worsen or persist or if there are any questions or concerns that arise at home. 11/09 20:42 Order name: Dressing - Wound; Complete Time: 22:51 kb 11/09 20:42 Order name: Gloves, Sterile; Complete Time: 22:51 kb 11/09 20:42 Order name: Prolene, Sutures; Complete Time: 22:51 kb 11/09 20:42 Order name: Setup Suture Tray; Complete Time: 21:12 kb 11/09 20:42 Order name: Wound Care: clean and dress superficial wounds; Complete Time: 21:10 kb Administered Medications: 11/09 21:10 Drug: Boostrix Tdap IM 0.5 ml IM once; as a single dose Route: IM; Site: left deltoid; br2 22:00 Follow up: Response: No adverse reaction br2 21:10 Drug: ceFAZolin IVPB 1 grams IVPB once Route: IVPB; Site: left antecubital; br2 22:00 Follow up: Response: No adverse reaction; IV Status: Completed infusion; IV Intake: br2 100ml 21:12 Drug: Lidocaine Mucous Membrane Gel 2 % 1 application Mucous Membrane once Route: br2 Mucous Membrane; 22:00 Follow up: Response: No adverse reaction br2 23:13 Drug: Lidocaine Infiltration (1 %) 1 vials 20 ml Infiltration once; to bedside Volume: br2 20 ml; Route: Infiltration; 23:13 Follow up: Response: No adverse reaction br2 Disposition Summary: 11/09/24 22:55 Discharge Ordered Notes: Location: Home kb Condition: Stable kb Diagnosis - Bitten by dog kb Followup: kb - With: Emergency Department - When: As needed - Reason: Worsening of condition Followup: kb - With: Private Physician - When: 2 - 3 days - Reason: Recheck today's complaints, Continuance of care, Re-evaluation by your physician Discharge Instructions: - Discharge Summary Sheet kb - Animal Bite, Adult, [id number] kb Forms: - Medication Reconciliation Form kb - Antibiotic Education kb - Prescription Opioid Use kb - Patient Portal Instructions kb - Leadership Thank You Letter kb Prescriptions: - Augmentin 875-125 mg Oral Tablet - take 1 tablet ORAL route every 12 hours for 10 days; 20 tablet; Refills: 0, kb Product Selection Permitted Addendum: 11/15/2024 09:04 Co-signature as Attending Physician, Julius San MD I agree with the assessment and c coronado plan of care. Signatures: Gail Kim, SHIP SCRAPER-C SHIP SCRAPER-Julius Muro MD MD cha Able, Lacie, RN RN lg3 Sushma Morse RN RN br2
[2024-11-09 23:37] VITALS: BP 176/81
[2024-11-09 23:39] VITALS: O2SAT 98
== END 2024-11-09 23:17 | disposition home or self-care (01) ==
LOC: ER 19:59
DX: S81.811A Laceration without foreign body, right lower leg, initial encounter (principal); S81.812A Laceration without foreign body, left lower leg, initial encounter; W54.0XXA Bitten by dog, initial encounter
CPT/HCPCS: 12034; 96365; 96372; 99285; J2003; J0690; 12032

== ENCOUNTER 2024-11-18 22:30 | Emergency (ER) | payer OTHER ==
--- OUTSIDE RECORDS SUMMARY | 2024-11-18 22:33 | XMS REPORT | Continuity of Care Document ---
Author Name Unknown Address [address] [facility] [address] [place] [address] [facility] thconnect Address [address] [facility] [address] [place] [address] Care Team Providers Care Race Starter Name Role Phone Salome Arrieta Primary Care Physician [phone] Megan Nation Attending Clinician Unavailable JOEY MALDONADO Attending Clinician Unavaila Joey Jennings Attending Clinician [phone] GC_GCBZW_Floresita_S Attending Clinician UnavailCRISTINO Sanchez Attending Clinician Unavail CRISTINO Morris Attending Clinician Unavail Cristino Morris MD Attending Clinician [phone] Ricardo TERRAZAS, Sendmichael K.H. Attending Clinician + [phone] DREW BOTELLO K.H. Attending Clinician Unavaila RENITA Bustamante Attending Clinician Unavaila RENITA Bustamante Attending Clinician Unavaila jeet Burris, Ang - Db Attending Clinician Unavailable Doctor Unassigned, [address] [facility] [place] Attending Clinician TREY Coronado M.D. Attending Clinician Unavaila JAIME Castillo APRN Attending Clinician Joe Kennedy Attending Clinician [phone] JOE MELARA Attending Clinician Unavailable GC_GCBZW_Floresita_S Admitting Clinician CRISTINO Collins Admitting Clinician Unavail juan Payers Payer Name Policy Type Policy Number Effective Date Expirati on Date Source [employer]HC DUAL COMP HMO D SNP [id number] 2023 00:00:00 [employer] - MEDICA (MEDICARE REPLACEMENT HMO) [id number] 2020 00:00:00 MEDICAID OF [place] [id number] 2020 00:00:00 2023 00:00:00 Problems Condition Name Condition Details Condition Category Status Onset Date Resolution Date Last Treatment Date Treating Clinician Comments Source History of gastroesop hageal reflux (GERD) History of gastroesop hageal reflux (GERD) Problem Resolve d [facility] History of ulceration History of ulceration Problem Resolve d [facility] Urinary incontinen ce in female Urinary incontinen ce in female Problem Active [facility] Chronic LLQ pain Chronic LLQ pain Problem Active [facility] 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 [facility] Microscopi c hematuria Microscopi c hematuria Problem Active [facility] Mixed urge and stress incontinen ce Mixed urge and stress incontinen ce Problem Active [facility] Nocturia Nocturia Problem Active [facility] Urinary urgency Urinary urgency Problem Active [facility] Urinary incontinen ce without sensory awareness Urinary incontinen ce without sensory awareness Problem Active [facility] Left flank pain, chronic Left flank pain, chronic Problem Active [facility] Umbilical discharge Umbilical discharge Problem Active [facility] Allergies, Adverse Reactions, Alerts Allergy Name Allergy Type Status Severity Reaction(s) Onset Date Inactive Date Treating Clinician Comments Source NO KNOWN ALLERGIE S Drug Class Active [facility] acute hospital Family History Family Member Diagnosis Comments Start Date Stop Date Sourc e Unknown Family Member Family history of malignant neoplasm Family History [facility] Social History Social Habit Start Date Stop Date Quantity Comments Source Gender identity [facility] Tobacco use and exposure 2023-08-22 00:00:00 2023-08-22 00:00:00 Smokeless tobacco non-user [facility] History of Social function 2023-08-22 00:00:00 2023-08-22 00:00:00 [facility] Sex Assigned At 1950 00:00:00 1950 00:00:00 [facility] Smoking Status Start Date Stop Date Source Tobacco smoking consumption unknown [facility] Never smoked tobacco [facility] acute hospital Medications Ordered Medication Name Filled Medication Name Start Date Stop Date Current Medication? Ordering Clinician Indication Dosage Frequency Signature (SIG) Comments Components Source gadoteridol (PROHANCE-1 5 mL) injection 0.2 mL/kg 2022-11 18:45: 00 09-01 18:40 :00 No [id number] .2mL/kg 0.2 mL/kg, Intravenou s, ONCE, 1 dose, On Mon09/01/23 at 1345, Routine [facility] acute hospital tc 99m-tetrofo smin (MYOVIEW) injection 44 millicurie 2022-11 14:45: 00 08-29 14:45 :00 No [id number] 44mCi 44 millicurie , Intravenou s, ONCE, 1 dose, On Mon08/29/23 at 0945, Routine [facility] acute hospital regadenoson (LEXISCAN) injection 0.4 mg 2022-11 14:45: 00 08-29 14:58 :00 No [id number] .4mg 0.4 mg, IV Push, ONCE, 1 dose, On Mon08/29/23 at 0945, Routine
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
multiple launch rocket system crewmember approving Restricted medication : DREW BOTELLO General acute hospital tc 99m-tetrofo smin (MYOVIEW) injection 16 millicurie 2022-11 0 13:45: 00 08-29 13:34 :00 No [id number] 16mCi 16 millicurie , Intravenou s, ONCE, 1 dose, On Mon08/29/23 at 0845, Routine [facility] acute hospital traZODone 50 mg tablet 08-09 13:45: 14 Yes 50mg Take 1 tablet by mouth at bedtime. [facility] acute hospital losartan 50 mg tablet 08-09 13:45: 14 Yes 50mg Take 1 tablet by mouth in the morning. [facility] acute hospital meloxicam 7.5 mg tablet 08-09 13:45: 14 Yes 7.5mg Take 1 tablet by mouth in the morning. [facility] acute hospital tiZANidine 4 mg capsule 08-09 13:45: 14 Yes 4mg Take 1 capsule by mouth in the morning and 1 capsule at noon and 1 capsule in the evening. [facility] acute hospital Myrbetriq 50 MG Oral Tablet Extended Release 24 Hour Myrbetriq 50 MG Oral Tablet Extended Release 24 Hour 08-07 00:00: 00 Yes TREY QUIROS M.D. 1 po qd x 30 days [facility] carBAMazepi ne 200 mg tablet 2018-11 00:00: 00 Yes TK 1 T PO BID [facility] acute hospital meclizine 25 mg tablet 2018-11 00:00: 00 Yes TK 1 T PO TID [facility] acute [facility] traMADol 50 mg tablet 2018-11 00:00: 00 Yes TK 1 T PO BID [facility] acute hospital Omeprazole 40 MG Oral Capsule Delayed Release Omeprazole 40 MG Oral Capsule Delayed Release Yes [facility] carBAMazepi ne ER 200 MG Oral Tablet Extended Release 12 Hour carBAMazepi ne ER 200 MG Oral Tablet Extended Release 12 Hour Yes [facility] Vital Signs Vital Name Observation Time Observation Value Comments S chad Systolic blood pressure 2024-02-14 19:08:00 161 mm[Hg] [facility] Diastolic blood pressure 2024-02-14 19:08:00 84 mm[Hg] [facility] Heart rate 2024-02-14 19:08:00 70 /min [facility] Body temperature 2024-02-14 19:08:00 36.67 Judy [facility] Respiratory rate 2024-02-14 19:08:00 20 /min [facility] Body height 2024-02-14 19:08:00 157.5 cm [facility] Body weight 2024-02-14 19:08:00 81.194 kg [facility] BMI 2024-02-14 19:08:00 32.74 kg/m2 [facility] Oxygen saturation in Arterial blood by Pulse oximetry 2024-02-14 19:08:00 98 /min [facility] Systolic blood pressure 2023-09-05 16:24:00 159 mm[Hg] [facility] Diastolic blood pressure 2023-09-05 16:24:00 80 mm[Hg] [facility] Heart rate 2023-09-05 16:20:00 63 /min [facility] Respiratory rate 2023-09-05 16:20:00 18 /min [facility] Body height 2023-09-05 16:20:00 157.5 cm [facility] Body weight 2023-09-05 16:20:00 84.913 kg [facility] BMI 2023-09-05 16:20:00 34.24 kg/m2 [facility] Oxygen saturation in Arterial blood by Pulse oximetry 2023-09-05 16:20:00 96 /min [facility] Systolic blood pressure 2023-08-22 18:36:00 153 mm[Hg] [facility] Diastolic blood pressure 2023-08-22 18:36:00 81 mm[Hg] [facility] Heart rate 2023-08-22 18:34:00 74 /min [facility] Respiratory rate 2023-08-22 18:34:00 18 /min [facility] Body height 2023-08-22 18:34:00 157.5 cm [facility] Body weight 2023-08-22 18:34:00 84.46 kg [facility] BMI 2023-08-22 18:34:00 34.06 kg/m2 [facility] Oxygen saturation in Arterial blood by Pulse oximetry 2023-08-22 18:34:00 96 /min [facility] Systolic blood pressure 2023-08-09 18:48:00 143 mm[Hg] [facility] Diastolic blood pressure 2023-08-09 18:48:00 74 mm[Hg] [facility] Systolic blood pressure 2023-08-09 18:48:00 143 mm[Hg] [facility] Diastolic blood pressure 2023-08-09 18:48:00 74 mm[Hg] [facility] Body weight 2023-08-09 18:35:00 84.369 kg [facility] BMI 2023-08-09 18:35:00 34.02 kg/m2 [facility] Oxygen saturation in Arterial blood by Pulse oximetry 2023-08-09 18:35:00 96 /min [facility] Heart rate 2023-08-09 18:35:00 68 /min [facility] Respiratory rate 2023-08-09 18:35:00 18 /min [facility] Body height 2023-08-09 18:35:00 157.5 cm [facility] Body weight 2023-08-09 18:35:00 84.369 kg [facility] BMI 2023-08-09 18:35:00 34.02 kg/m2 [facility] Oxygen saturation in Arterial blood by Pulse oximetry 2023-08-09 18:35:00 96 /min [facility] Heart rate 2023-08-09 18:35:00 68 /min [facility] Respiratory rate 2023-08-09 18:35:00 18 /min [facility] Body height 2023-08-09 18:35:00 157.5 cm [facility] Body height 2020-01-16 19:18:00 157.5 cm [facility] Body weight 2020-01-16 19:18:00 81.647 kg [facility] BMI 2020-01-16 19:18:00 32.92 kg/m2 [facility] Systolic blood pressure 2020-01-16 19:18:00 157 mm[Hg] [facility] Diastolic blood pressure 2020-01-16 19:18:00 81 mm[Hg] [facility] Body height 2020-01-16 19:18:00 157.5 cm [facility] Body weight 2020-01-16 19:18:00 81.647 kg [facility] BMI 2020-01-16 19:18:00 32.92 kg/m2 [facility] Systolic blood pressure 2020-01-16 19:18:00 157 mm[Hg] [facility] Diastolic blood pressure 2020-01-16 19:18:00 81 mm[Hg] [facility] Systolic blood pressure 2020-08-07 15:11:00 124 mm[Hg] Location: LUE; Position: Sitting [facility] Diastolic blood pressure 2020-08-07 15:11:00 80 mm[Hg] Location: LUE; Position: Sitting [facility] Body height 2020-08-07 15:11:00 62 [in_us] [facility] Weight 2020-08-07 15:11:00 180 [lb_av] [facility] Body mass index (BMI) [Ratio] 2020-08-07 15:11:00 32.92 kg/m2 [facility] Body temperature 2020-08-07 15:11:00 97.1 [degF] Method: Temporal [facility] Systolic blood pressure 2020-04-17 10:16:00 116 mm[Hg] Location: LUE; Position: Sitting [facility] Diastolic blood pressure 2020-04-17 10:16:00 72 mm[Hg] Location: LUE; Position: Sitting [facility] Body height 2020-04-17 10:16:00 62 [in_us] [facility] Weight 2020-04-17 10:16:00 180 [lb_av] [facility] Body mass index (BMI) [Ratio] 2020-04-17 10:16:00 32.92 kg/m2 [facility] Body temperature 2020-04-17 10:16:00 97.2 [degF] Method: Temporal [facility] Systolic blood pressure 2020-01-08 09:35:00 158 mm[Hg] Location: LUE; Position: Sitting [facility] Diastolic blood pressure 2020-01-08 09:35:00 74 mm[Hg] Location: LUE; Position: Sitting [facility] Body height 2020-01-08 09:35:00 62 [in_us] [facility] Weight 2020-01-08 09:35:00 180 [lb_av] [facility] Body mass index (BMI) [Ratio] 2020-01-08 09:35:00 32.92 kg/m2 [facility] Procedures Procedure Date / Time Performed Performing Clinician Source CONSENT/REFUSAL FOR DIAGNOSIS AND TREATMENT 2024-02-14 18:56:44 Doctor Unassigned, [address] [place] [facility] MR BRAIN W WO CONTRAST 2023-09-01 18:53:00 [facility] MYOCARDIUM PERFUSION STRESS AND REST 2023-08-29 16:30:00 Botello, Sendil K.H. [facility] NUCLEAR STRESS TEST CARDIOLOGY (DO NOT SCHED) 2023-08-29 16:30:00 [facility] MYOCARDIUM PERFUSION STRESS AND REST 2023-08-29 16:30:00 Botello, Sendil K.H[facility] NUCLEAR STRESS TEST CARDIOLOGY (DO NOT SCHED) 2023-08-29 16:30:00 [facility]ello, [facility] MYOCARDIUM PERFUSION STRESS AND REST 2023-08-29 16:30:00 Botello, Sendil K.H. [facility] NUCLEAR STRESS TEST CARDIOLOGY (DO NOT SCHED) 2023-08-29 16:30:00 Botello, [facility] MYOCARDIUM PERFUSION STRESS AND REST 2023-08-29 16:30:00 Botello, Sendil K.H[facility] NUCLEAR STRESS TEST CARDIOLOGY (DO NOT SCHED) 2023-08-29 16:30:00 Botello, Sendil K.[facility] TRANSTHORACIC ECHO (TTE) COMPLETE W/ CONTRAST 2023-08-29 14:04:00 Botello, Sendil [facility].H[facility] EXTERNAL PROVIDER RECORDS 2023-08-21 05:01:00 Doctor Unassigned, [address] [place] [facility] HB ECG ROUTINE & RHYTHM STRIP 2023-08-09 18:59:29 Botello, Sendil K.H[facility] CONSENT/REFUSAL FOR DIAGNOSIS AND TREATMENT 2023-08-09 18:30:36 Doctor Unassigned, [address] [place] [facility] REFERRAL- REQUEST/RESPONSE 2023-07-26 05:01:00 Doctor Unassigned, [address] [place] [facility] CT Abdomen/Pelvis w/wo contrast [id number] 2020-04-17 00:00:00 [facility] [QL] CULTURE, URINE, ROUTINE 2020-04-17 00:00:00 [facility] [QLH] CULTURE, URINE, ROUTINE 2020-01-08 00:00:00 [facility] US Renal [id number] 2020-01-08 00:00:00 [facility] US Pelvic with Transvaginal and Pelvic Doppler [id number] 2020-01-08 00:00:00 [facility] History of Salpingo-oophorectomy Right Side [facility] History of Laparoscopy With Total Hysterectomy For Uterus 250g Or Less [facility] Encounters Start Date/Time End Date/Time Encounter Type Admission Type Attending Clinicians Care Facility Care Department Encounter ID Source 2022-07-28 09:16:05 Outpatient onelvalLatisha Megan [facility] [id number] [facility] 2024-02-14 14:10:00 2024-02-14 14:41:00 Emergency X JOEY MALDONADO [facility] ERT [id number] General acute hospital 2024-02-14 14:10:00 2024-02-14 14:41:00 Emergency Joey Maldonado [facility] 1.2.840.114 350.1.13.10 4.2.7.2.686 [id number] General acute hospital 2023-12-13 00:00:00 2023-12-13 00:00:00 Outpatient GC_GCBZW_Ka diyala_S PRIV PRIV [id number] [facility] 2023-12-06 20:00:00 2023-12-06 20:00:00 Outpatient R [facility] [id number] General acute hospital 2023-09-23 00:00:00 2023-09-23 00:00:00 Outpatient GC_GCBZW_Ka diyala_S PRIV PRIV [id number] [facility] 2023-09-23 00:00:00 2023-09-23 00:00:00 Outpatient GC_GCBZW_Ka diyala_S PRIV PRIV [id number] [facility] 2023-09-23 00:00:00 2023-09-23 00:00:00 Outpatient GC_GCBZW_Ka diyala_S PRIV [facility] [id number] [facility] 2023-09-14 13:00:00 2023-09-14 13:00:00 Outpatient R [facility] [id number] General acute hospital 2023-09-05 11:00:00 2023-09-05 13:01:38 Outpatient R CRISTINO CRAIN [facility] [id number] General acute hospital 2023-09-05 11:00:00 2023-09-05 13:01:38 Office Visit Cristino Crain [facility] 1..840.114 350.1.13.10 4.2.7.2.686 [id number] General acute hospital 2023-09-04 00:00:00 2023-09-04 00:00:00 Telephone Cristino Crain [facility] 1.840.114 350.1.13.10 4.2.7.2.686 [id number] General acute hospital 2023-09-01 12:45:58 2023-09-01 23:59:00 Outpatient R CRISTINO CRAIN [facility] [id number] General acute hospital 2023-09-01 12:45:58 2023-09-01 23:59:00 Hospital Encounter Cristino Crain [facility] 1.840.114 350.1.13.10 4.2.7.2.686 [id number] General acute hospital 2023-09-01 00:00:00 2023-09-01 00:00:00 Telephone Drew Botello [facility] N[facility] 1..840.114 350.1.13.10 4.2.7.2.686 [id number] General acute hospital 2023-08-29 08:21:39 2023-08-29 23:59:00 Hospital Encounter Drew Botello [facility] 1.2.840.114 350.1.13.10 4.2.7.2.686 [id number] General acute hospital 2023-08-29 08:21:15 2023-08-29 23:59:00 Hospital Encounter Drew Botello [facility] 1.2.840.114 350.1.13.10 4.2.7.2.686 [id number] General acute hospital 2023-08-29 08:21:05 2023-08-29 23:59:00 Hospital Encounter Drew Botello [facility] 1.2.840.114 350.1.13.10 4.2.7.2.686 [id number] General acute hospital 2023-08-29 08:20:56 2023-08-29 08:20:56 Hospital Encounter Drew Botello [facility] 1.2.840.114 350.1.13.10 4.2.7.2.686 [id number] General acute hospital 2023-08-29 08:20:47 2023-08-29 08:20:47 Hospital Encounter Drew Botello [facility] 1.2.840.114 350.1.13.10 4.2.7.2.686 [id number] General acute hospital 2023-08-29 08:20:47 2023-08-29 08:20:47 Outpatient R DREW BOTELLO [facility] [id number] General acute hospital 2023-08-24 13:00:00 2023-08-24 13:00:00 Outpatient RENITA COPE STRAHIL [facility] [id number] General acute hospital 2023-08-22 14:30:00 2023-08-22 15:03:14 Outpatient R CRISTINO CRAIN [facility] [id number] General acute hospital 2023-08-22 14:30:00 2023-08-22 14:45:00 Emissions Technician Visit Lab, Florentin Pena Cristino Crain [facility] 1.2840.114 350.1.13.10 4.2.7.2.686 [id number] General acute hospital 2023-08-22 13:40:00 2023-08-22 14:01:58 Office Visit Cristino Crain [facility] 1.284.114 350.1.13.10 4.2.7.2.686 [id number] General acute hospital 2023-08-21 00:00:00 2023-08-21 00:00:00 Orders Only Doctor Unassigned, [address] [place] [facility] 1.0.114 350.1.13.10 4.2.7.2.686 [id number] General acute hospital 2023-08-09 13:30:00 2023-08-09 14:19:08 Outpatient R DREW BOTELLO [facility] [id number] General acute hospital 2023-08-09 13:30:00 2023-08-09 14:19:08 Office Visit Drew Botello [facility] NAL BUILD[facility] 1.84.114 350.1.13.10 4.2.7.2.686 [id number] General acute hospital 2023-08-09 00:00:00 2023-08-09 00:00:00 Orders Only Doctor Unassigned, [address] [place] [facility] 1.20.114 350.1.13.10 4.2.7.2.686 [id number] General acute hospital 2023-07-26 00:00:00 2023-07-26 00:00:00 Orders Only Doctor Unassigned, [address] [place] [facility] 1.2.840.114 350.1.13.10 4.2.7.2.686 [id number] General acute hospital 2020-08-07 15:20:00 2020-08-07 15:20:00 Appointmen t; TREY QUIROS M.D. DERESKA, NINA, M.D. [facility] [place] [id number] [facility] 2020-04-17 10:30:00 2020-04-17 10:30:00 Appointmen t; TREY QUIROS M.D. DERESKA, NINA, M.D. [facility] [place] [id number] [facility] 2020-04-17 10:10:00 2020-04-17 10:10:00 Appointmen t; TREY QUIROS M.D. DERESKA, NINA, M.D. [facility] [place] [id number] [facility] 2020-02-26 11:00:00 2020-02-26 11:00:00 Appointmen t; TREY QUIROS M.D. DERESKA, NINA, M.D. [facility] [place] [id number] [facility] 2020-02-26 10:10:00 2020-02-26 10:10:00 Appointmen t; TREY QUIROS M.D. DERESKA, NINA, M.D. [facility] [id number] [facility] 2020-01-23 11:00:00 2020-01-23 11:00:00 Appointmen t; JAIME KING APRN HALBROOK, ROBYN, APRN [facility] [place] [id number] [facility] 2020-01-16 13:11:56 2020-01-21 15:12:13 Office Visit Joe [facility]ara [facility] [place] 1.2.840.114 350.1.13.10 4.2.7.2.686 [id number] General acute hospital 2020-01-16 13:11:56 2020-01-21 15:12:13 Office Visit Joe Melara [facility] [place] 1.2.840.114 350.1.13.10 4.2.7.2.686 [id number] 2020-01-16 13:15:00 2020-01-16 13:46:56 Outpatient R JOE MELARA [facility] [id number] General acute hospital 2020-01-08 09:20:00 2020-01-08 09:20:00 AppointTREY Ruby M.D. DERESKA, NINA, M.D. [facility] [place] [id number] [place] [facility] Results Test Description Test Time Test Comments Results Result Co [facility]ments [facility] [id number] 2020-05-02 11:28:00EXAM: CT ABDOMEN AND PELVIS WITHOUT AND WITH CONTRASTDATE: 05/02/2020 11:17 CDTINDICATION: - Left lower quadrant pain, abdominalADDITIONAL INFORMATION: None.COMPARISON: None.TECHNIQUE: Volumetric CT acquisition of the abdomen and pelvis before and afterthe intravenous administration contrast. Axial, coronal and sagittalreconstructions.Postcontrast phases: Venous and delayedIV contrast: 100 mL OmnipaqueOral contrast: Omni mixCT Radiation Dose DLP 1961 mGy-cmAEC, mA/kV adjustment by patient size, and/or iterative reconstructiontechnique were used, per departmental dose-optimization program.FINDINGS: Lines and tubes: None.Lower thorax: Platelike atelectatic changes in the lung bases.Liver and biliary tree: Normal.Gallbladder: Surgically absent.Pancreas: Mildly atrophic.Spleen: Normal.Adrenals:Normal.Kidneys and ureters: 1 cm right renal cyst. [...] 05/03/20 10:23Electronically Signed by: Jose Christensen 05/03/2010:29FINAL [facility]PORT[facility][O] Urine Dipstick (In Office) 2020-04-17 11:33:00* Test Item Value Reference Range Interpretation Comme nts Glucose (test code = Glucose) NEG N LEUKOCYTES (test code = LEUKOCYTES) NEG N NITRITE; Normal (test code = 65320-2) NEG N UROBILINOGEN; Normal (test c ode = 72259-3) 0.2 N PROTEIN; Normal (test code = 56594-3) NEG N pH (test code = pH) 5.5 N URINE BLOOD; Abnormal (test code = 04888-7) 2+ A SPECIFIC GRAVITY; Normal (te st code = 2965-2) 1.030 N KETONES; Normal (test code = 00927-5) NEG N BILIRUBIN; Normal (test code = 68536-2) NEG N [facility][QL] CULTURE, URINE, [id number] 00:00:00* Test Item Value Reference Range Interpretation Comme nts CULTURE (test code = CULTURE) See Comment CULTURE, URINE, ROUTINE Micro Number: [id number] Test Status: Final Specimen Source: URINE Specimen Quality: Adequate Result: No Growth [facility][O] Urine Dipstick (In Office)2020-01-23 11:21:00* Test Item Value Reference Range Interpretation Comme nts Glucose (test code = Glucose) neg N LEUKOCYTES (test code = LEUKOCYTES) neg N NITRITE; Normal (test code = 52728-2) neg N UROBILINOGEN; Normal (test c ode = 58621-2) 0.2 N PROTEIN; Normal (test code = 90309-6) neg N pH (test code = pH) 6.0 N URINE BLOOD; Abnormal (test code = 58695-1) trace A SPECIFIC GRAVITY; Normal (te st code = 2965-2) <=1.005 N KETONES; Normal (test code = 64864-2) neg N BILIRUBIN; Normal (test code = 93214-1) neg N [facility] CULTURE, URINE, [id number] 11:37:01* Test Item Value Reference Range Interpretation Comme nts FINAL REPORT (test code = FI NAL REPORT) No Growth [facility][O] Urine Dipstick (In Office)2020-01-08 10:02:00* Test Item Value Reference Range Interpretation Comme nts Glucose (test code = Glucose) neg N LEUKOCYTES (test code = LEUKOCYTES) neg N NITRITE; Normal (test code = 30019-7) neg N UROBILINOGEN; Normal (test c ode = 84386-4) 0.2 N PROTEIN; Abnormal (test code = 46727-5) trace A pH (test code = pH) 6.0 N URINE BLOOD; Abnormal (test code = 23861-2) 2+ A SPECIFIC GRAVITY; Normal (te st code = 2965-2) 1.030 N KETONES; Normal (test code = 40333-5) neg N BILIRUBIN; Normal (test code = 94690-0) neg N [facility]
--- NOTE | 2024-11-18 22:58 | EDPHYS ---
Physician Documentation [facility] Name: Manju Lancaster Age: 74 yrs Sex: Female : 1950 Arrival Date: 11/18/2024 Time: 22:30 Bed IW1 Private MD: ED Physician Anson Burrell HPI: 11/19 00:03 This 74 yrs old Female presents to ER via Ambulatory with complaints of Wound kb Check. 00:03 Pt is a 74 year old female who presents to have wound evaluated. Pt was bitten by a dog kb 9 days ago and had sutures placed. Reports the large wound has become more red and warm over the last 2 days. Denies fever, chills, pain. Historical: - Allergies: 11/18 22:50 NKA; vc1 - Home Meds: 22:50 losartan oral [Active]; vc1 - PMHx: 22:50 GERD; Hypertensive disorder; Vertigo; vc1 - PSHx: 22:50 None; vc1 - Immunization history:: Client reports receiving the 2nd dose of the Covid vaccine, Flu vaccine is not up to date. - Infectious Disease History:: Denies. - Social history:: Smoking status: Patient denies any tobacco usage or history of. ROS: 11/19 00:03 Constitutional: As per HPI kb Exam: 00:03 Constitutional: This is a well developed, well nourished patient who is awake, alert, kb and in no acute distress. Head/Face: Normocephalic, atraumatic. ENT: Moist Mucous membranes Cardiovascular: Regular rate Respiratory: Respirations even and unlabored. No increased work of breathing. Talking in full sentences MS/ Extremity: Pulses equal, no cyanosis. Neurovascular intact. Full, normal range of motion. Neuro: Awake and alert, GCS 15, oriented to person, place, time, and situation. 00:03 Skin: Wound recheck: Suture laceration closure: the wound is healing well, the edges are well approximated, no evidence of dehiscence, no drainage, no swelling, mild erythema, Vital Signs: 11/18 22:49 Weight 81.65 kg; Height 5 ft. 2 in. ; Pain 0/10; vc1 22:50 Pulse 67; Resp 16; Temp 97.3; Pulse Ox 97% ; vc1 22:53 BP 137 / 87; vc1 22:49 Body Mass Index 32.92 (81.65 kg, 157.48 cm) vc1 22:49 Pain Scale: Adult vc1 Procedures: 11/19 00:05 Suture/Staple removal: Removed 4 sutures, from left calf, site appears reddened, kb Patient tolerated well. MDM: 11/18 22:35 Medical Screening Exam initiated kb 11/19 00:05 Data reviewed: vital signs, nurses notes. 00:06 Differential diagnosis: cellulitis, abscess, local infection of wound. Management of kb patient was discussed with the following: Dr Burrell, who evaluated wound as well. Recommends removing a few sutures and prescribing second antibiotics. Pt given return precautions. . Counseling: I had a detailed discussion with the patient and/or guardian regarding the historical points, exam findings, and any diagnostic results supporting the discharge/admit diagnosis, the need for outpatient follow up, a family practitioner, to return to the emergency department if symptoms worsen or persist or if there are any questions or concerns that arise at home. Administered Medications: 11/18 23:07 Drug: Doxycycline PO 100 mg PO once Route: PO; 1 23:07 Follow up: Response: Medication administered at discharge. 1 Disposition: 11/19 01:21 Co-signature as Attending Physician, Anson Burrell MD I reviewed the patient's care rn provided by the Advanced Practice Provider and agree with the diagnosis and treatment plan. Disposition Summary: 11/18/24 22:57 Discharge Ordered Notes: Location: Home Condition: Stable kb Diagnosis - Local infection of the skin and subcutaneous tissue, unspecified kb Followup: kb - With: Emergency Department - When: As needed - Reason: Worsening of condition Followup: kb - With: Private Physician - When: 2 - 3 days - Reason: Recheck today's complaints, Continuance of care, Re-evaluation by your physician Discharge Instructions: - Discharge Summary Sheet kb - Wound Infection, [id number] kb Forms: - Medication Reconciliation Form kb - Antibiotic Education kb - Prescription Opioid Use kb - Patient Portal Instructions kb - Leadership Thank You Letter kb Prescriptions: - Doxycycline Hyclate 100 mg Oral Tablet - take 1 tablet ORAL route every 12 hours; 20 tablet; Refills: 0, Product kb Selection Permitted Signatures: Gail Kim, CHANTEL-C CHANTEL-Anson Sanchez MD MD rn Calcote, Lindsey, RN RN vc1
--- NOTE | 2024-11-18 22:58 | ER ---
Nurse's Notes [facility] Name: Manju Lancaster Age: 74 yrs Sex: Female : 1950 Arrival Date: 11/18/2024 Time: 22:30 Bed IW1 Private MD: Diagnosis: Local infection of the skin and subcutaneous tissue, unspecified Presentation: 11/18 22:49 Chief complaint: Patient states: Bit by a dog a week ago and it looks infected. My leg vc1 is hot. Coronavirus screen: Client denies travel out of the [place] in the last 14 days. At this time, the client does not indicate any symptoms associated with coronavirus-19. Ebola Screen: Patient negative for fever greater than or equal to 101.5 degrees Fahrenheit, and additional compatible Ebola Virus Disease symptoms Patient denies exposure to infectious person. Patient denies travel to an Ebola-affected area in the 21 days before illness onset. No symptoms or risks identified at this time. Initial Sepsis Screen: Does the patient meet any 2 criteria? No. Patient's initial sepsis screen is negative. Does the patient have a suspected source of infection? No. Patient's initial sepsis screen is negative. Risk Assessment: Do you want to hurt yourself or someone else? Patient reports no desire to harm self or others. Onset of symptoms is unknown. 22:49 Method Of Arrival: Ambulatory vc1 22:49 Acuity: CHRISTOPHE 4 vc1 Triage Assessment: 23:38 General: Appears in no apparent distress. comfortable, Behavior is calm, cooperative, vc1 appropriate for age. Pain: Denies pain. Derm: Skin is intact, is healthy with good turgor, Skin is dry, Skin is normal, Wound noted left leg. Historical: - Allergies: 22:50 NKA; vc1 - Home Meds: 22:50 losartan oral [Active]; vc1 - PMHx: 22:50 GERD; Hypertensive disorder; Vertigo; vc1 - PSHx: 22:50 None; vc1 - Immunization history:: Client reports receiving the 2nd dose of the Covid vaccine, Flu vaccine is not up to date. - Infectious Disease History:: Denies. - Social history:: Smoking status: Patient denies any tobacco usage or history of. Screenin:35 [facility] ED Fall Risk Assessment (Adult) History of falling in the last 3 months, vc1 including since admission No falls in past 3 months (0 pts) Confusion or Disorientation No (0 pts) Intoxicated or Sedated No (0 pts) Impaired Gait No (0 pts) Mobility Assist Device Used No (0 pt) Altered Elimination No (0 pt) Score/Fall Risk Level 0 - 2 = Low Risk Oriented to surroundings, Maintained a safe environment, Educated pt \T\ family on fall prevention, incl call for assistance when getting out of bed. Abuse screen: Denies threats or abuse. Nutritional screening: No deficits noted. Tuberculosis screening: No symptoms or risk factors identified. Vital Signs: 22:49 Weight 81.65 kg; Height 5 ft. 2 in. ; Pain 0/10; vc1 22:50 Pulse 67; Resp 16; Temp 97.3; Pulse Ox 97% ; vc1 22:53 BP 137 / 87; vc1 22:49 Body Mass Index 32.92 (81.65 kg, 157.48 cm) vc1 22:49 Pain Scale: Adult vc1 ED Course: 22:32 Patient arrived in ED. im 22:35 [facility]ail [facility]C [facility]. kb 22:35 Anson Burrell MD is Attending Physician. kb 22:50 Triage completed. vc1 22:50 Arm band placed on right wrist. vc1 23:36 Patient has correct armband on for positive identification. seen in triage. Provided vc1 Education on: complete abx. 23:37 Assisted provider with: suture removal. Patient did not have IV access during this vc1 emergency room visit. Administered Medications: 23:07 Drug: Doxycycline PO 100 mg PO once Route: PO; vc1 23:07 Follow up: Response: Medication administered at discharge. vc1 Medication: 23:37 VIS not applicable for this client. vc1 Outcome: 22:57 Discharge ordered by . kb 23:38 Discharged to home ambulatory, vc1 23:38 Condition: good 23:38 Discharge instructions given to patient, Instructed on discharge instructions, follow up and referral plans. medication usage, Demonstrated understanding of instructions, follow-up care, medications, Prescriptions given X 1, 23:39 Patient left the ED. vc1 Signatures: Gail Kim FNP-C FNP-Ckb Calcote, Vanessa, RN RN vc1 Priscilla Quick im
[2024-11-18] MEDS ORDERED: DOXYCYCLINE 100 MG CAP PO ONE (23:05)
[2024-11-19 00:20] VITALS: TEMP 97.3; O2SAT 97
[2024-11-19 00:22] VITALS: BP 137/87
== END 2024-11-18 23:39 | disposition home or self-care (01) ==
LOC: ER 22:30
DX: L08.9 Local infection of the skin and subcutaneous tissue, unspecified (principal)
CPT/HCPCS: 99283